=== PATIENT | female | born 1945 | race Caucasian/White ===

== ENCOUNTER → 2018-03-22 | Outpatient (CLI) | payer MEDICARE, OTHER ==
[~2018-03-22] MED LIST: AMLODIPINE BESYL5 MG PO; CALCIUM 500+D1 EACH PO; DOXAZOSIN MESYLA2 MG PO; GABAPENTIN300 MG PO; LATANOPROST2.5 ML OU; LEVOTHYROXINE50 MCG PO; LOSARTAN POTAS100 MG PO; LOTRONEX1 MG PO; MECLIZINE HCL12.5 MG PO; METFORMIN HCL500 M2 PO; METOPROLOL SUCC50 MG PO; PANTOPRAZOLE SO40 MG PO; PLAVIX75 MG PO; PRAVASTATIN SOD20 MG PO; TRAZODONE HCL50 MG PO; VIIBRYD40 MG PO; WELCHOL625 MG PO
--- NOTE | 2018-04-01 12:12 | Polysomnography ---
DATE OF STUDY: POLYSOMNOGRAM REPORT Patient of Dr. Tompkins and Dr. Arshad. A 72-year-old woman with a history of apneas noted by family. Difficulty falling asleep. Diagnostic study was requested. She was monitored using standard EEG lead. In addition, she was monitored with electrooculogram, submentalis EMG, anterior tibialis EMG, nasal and oral thermistors, rib cage, and abdominal strain moncho monitor, and pulse oximeter. Sleep efficiency was reduced at 74%. Sleep onset latency was somewhat prolonged at 46 minutes. All stages of sleep were recorded. There were 4 obstructive apneas, the average duration 11 seconds. There were 42 hypopneas. The apnea hypopnea index was 8.5 consistent with mild obstructive sleep apnea. There were in addition respiratory event related arousals particularly during REM sleep. The respiratory disturbance index was 12.8. Occasional paroxysmal leg movements of sleep. There was moderate O2 desaturation to 86%. The findings are consistent with mild obstructive sleep apnea. Certainly, weight reduction should be part of the patient's therapeutic program. Examination of nasal and oropharynx should be considered, as well as assay of thyroid function if not performed recently. Other therapeutic options gino include uvulopalatopharyngoplasty, jaw retaining devices and nasal CPAP. IMPRESSION: Mild obstructive sleep apnea. Job#: [id number] VINCE
== END ==
LOC: SLEEP 15:19
PROVIDERS: ATTEND Internal Medicine
DX: G47.30 Sleep apnea, unspecified (principal); R06.83 Snoring
CPT/HCPCS: 95810

== ENCOUNTER 2019-03-02 07:46 | Inpatient (IN) | payer MEDICARE, OTHER ==
[~2019-03-02] VITALS: Ht 172.7 cm; Wt 99.3 kg
--- OUTSIDE RECORDS SUMMARY | 2019-03-02 07:50 | XMS REPORT | Summary of Care ---
Author Organization Unknown Address Unknown Phone Unavailable Encounter HQ En[facility]_aleks([facility]) [id number] Date(s): 08/07/14 - 08/07/14 [facility] Outpatient Imaging - [address] [address] [place] Discharge Disposition: Home Physician Attending: Alma Tompkins MD Reason for Visit V10.11 - HX-BRONCHOGENIC Problem List No data available for this section Allergies, Adverse Reactions, Alerts Substance Reaction Severity Status Ceclor Active codeine Active penicillin Active Medications No data available for this section Medications Administered During Your Visit No data available for this section Immunizations No data available for this section
--- OUTSIDE RECORDS SUMMARY | 2019-03-02 07:50 | XMS REPORT | Summary of Care ---
Author Author [facility] Organization [facility] Address Unknown Phone Unavailable Encounter MARISSA Mac(SABAS) [id number] Date(s): 06/12/18 - 06/12/18 [facility] [address] [place] [address]- Encounter Diagnosis Iron deficiency anemia, unspecified (Final) - 06/22/18 Unspecified cirrhosis of liver (Final) - Unspecified chronic gastritis without bleeding (Final) - Benign neoplasm of ascending colon (Final) - Benign neoplasm of transverse colon (Final) - Benign neoplasm of descending colon (Final) - Benign neoplasm of sigmoid colon (Final) - Diaphragmatic hernia without obstruction or gangrene (Final) - Other fecal abnormalities (Final) - Gastro-esophageal reflux disease without esophagitis (Final) - Essential (primary) hypertension (Final) - Personal history of malignant neoplasm of breast (Final) - Discharge Disposition: Home or Self Care Attending Physician: Duane Castellano MD Referring Physician: Duane Castellano MD Vital Signs 1 2 3 Most recent to oldest [Reference Range]: 172.72 cm (06/11/18 10:56 AM) Height 151/60 mmHg *HI* (06/12/18 9:35 AM) 148/62 mmHg *HI* (06/12/18 9:20 AM) 142/58 mmHg *HI* (06/12/18 9:05 AM) Blood Pressure [90-140/60-90 mmHg] 18 BRMIN (06/12/18 9:35 AM) 20 BRMIN (06/12/18 9:20 AM) 20 BRMIN (06/12/18 9:05 AM) Respiratory Rate [14-20 BRMIN] 111.364 kg (06/11/18 10:56 AM) Weight 37.33 m2 (06/11/18 10:56 AM) Body Mass Index Problem List Condition Effective Dates Status Health Status Informant Back pain(Confirmed) Resolved Adenocarcinoma of Resolved breast(Confirmed) Coronary artery Resolved disease(Confirmed) Diabetes(Confirmed) Resolved GERD Resolved (gastroesophageal reflux disease)(Confirmed) Glaucoma(Confirmed) Resolved Hiatal Resolved hernia(Confirmed) Hypertension(Confirm Resolved ed) Hypothyroidism(Confi Resolved rmed) Iron deficiency Resolved anemia(Confirmed) Irritable bowel Resolved syndrome(Confirmed) Breast Resolved cancer(Confirmed) Cancer of Resolved lung(Confirmed) Cancer of Resolved lung(Confirmed) Lung Resolved cancer(Confirmed) Osteoporosis(Confirm Resolved ed) Colon Resolved polyp(Confirmed) Sepsis(Confirmed) Resolved Urinary tract Resolved infection(Confirmed) Allergies, Adverse Reactions, Alerts Substance Reaction Severity Status codeine Active penicillin Active Ceclor Active Medications amLODIPine PO, Daily, 0 Refill(s) Start Date: 06/11/18 Status: Ordered aspirin 81 mg, PO, Daily, 0 Refill(s) Start Date: 06/12/18 Status: Ordered Breo Ellipta 100 mcg-25 mcg inhalation powder 1 puff, INHALATION, Daily, 0 Refill(s) Start Date: 06/12/18 Status: Ordered clopidogrel 75 mg oral tablet 75 mg=1 tab, PO, Daily, # 30 tab, 0 Refill(s) Start Date: 06/11/18 Status: Ordered doxazosin 2 mg oral tablet 2 mg=1 tab, PO, Daily, # 30 tab, 0 Refill(s) Start Date: 06/11/18 Status: Ordered DuoNeb inhalation solution 3 ml, Route: NEB, Drug Form: SOLN, Dosing Weight 111.364, kg, PRN, PRN Respirato ry Pathway, Start date: 06/12/18 7:20:00 CDT, Duration: 30 day, Stop date: 07/12 7:19:00 CDT Notes: (Same as: Duoneb) Start Date: 06/12/18 Stop Date: 06/12/18 Status: Discontinued gabapentin 300 mg oral capsule 300 mg=1 cap, PO, Daily, 0 Refill(s) Start Date: 06/11/18 Status: Ordered meclizine 12.5 mg oral tablet 12.5 mg=1 tab, PO, Daily, 0 Refill(s) Start Date: 06/12/18 Status: Ordered metFORMIN PO, 0 Refill(s) Start Date: 06/11/18 Status: Ordered Nitrostat 0.4 mg sublingual tablet 0.4 mg=1 tab, SL, Q5Min, PRN Chest Pain, # 100 tab, 0 Refill(s) Start Date: 06/11/18 Status: Ordered pravastatin 40 mg oral tablet 40 mg=1 tab, PO, Bedtime, # 30 tab, 0 Refill(s) Start Date: 06/11/18 Status: Ordered ProAir HFA 90 mcg/inh inhalation aerosol with adapter 2 puff, INHALER, Q4H, PRN wheezing, coughing, or shortness of breath, # 1 ea, 1 Refill(s) Start Date: 06/11/18 Status: Ordered Protonix 40 mg oral enteric coated tablet 40 mg=1 tab, PO, Daily, # 30 tab, 0 Refill(s) Start Date: 06/11/18 Status: Ordered Sodium Chloride 0.9% IV 1000 mL 1,000 mL, Rate: 25 ml/hr, Infuse over: 40 hr, Route: IV, Dosing Weight 111.364 k g, Total Volume: 1,000, Start date: 06/12/18 7:22:00 CDT, Duration: 30 day, Stop date: 07/12/18 7:21:00 CDT, 2.34, m2 Start Date: 06/12/18 Stop Date: 06/12/18 Status: Discontinued trazodone 150 mg oral tablet 150 mg=1 tab, PO, Bedtime, # 30 tab, 0 Refill(s) Start Date: 06/11/18 Status: Ordered triamcinolone topical 0.5% cream TOP, BID, 0 Refill(s) Start Date: 06/11/18 Status: Ordered Viibryd 40 mg oral tablet 40 mg=1 tab, PO, Daily, 0 Refill(s) Start Date: 06/11/18 Status: Ordered Welchol 625 mg oral tablet 1,875 mg=3 tab, PO, BID-Meals, # 180 tab, 0 Refill(s) Start Date: 06/11/18 Status: Ordered Results No data available for this section Immunizations No data available for this section Procedures Procedure Date Related Diagnosis Body Site Status section Completed Cholecystectomy Completed Hysterectomy Completed Lumpectomy of breast1 Completed 1left breast Social History Social History Type Response Smoking Status Never smoker; Exposure to Tobacco Smoke None; Cigarette Smoking Last 365 Days No; Reg Smoking Cessation Counseling No entered on: 11/28/18 Assessment and Plan No data available for this section
--- OUTSIDE RECORDS SUMMARY | 2019-03-02 07:50 | XMS REPORT | Summary of Care ---
Author Author [facility] Address [address] [place] [address] Phone Unavailable Care Team Providers Care Car Repairer Pullman Name Role Phone RICH Alvarenga, JENN Unavailable Unavailable BERENICE Bass, JEREMIAH Unavailable Unavailable ELZA Bass, ANJU Unavailable Unavailable MONIE Bass, ARELIS Unavailable Unavailable MONTANEZ N.P., GRAY Unavailable Unavailable DOLLY Bass, PABLO Unavailable Unavailable MIKE Bass, IZAIAH Unavailable Unavailable BERENICE HUMPHRIES RI, JEREMIAH ANDREWS Unavailable Unavailable RICH BAKER RI, JENN Unavailable Unavailable Unavailable Unavailable Functional Status Name Dates Details Functional status health issues are not documented Status: Name Dates Details Cognitive status health issues are not documented Status: Problems Name Dates Details Abdominal pain (789.00, R10.9) Status: Active Excessive sweating (780.8, R61) Status: Active Vaginitis (616.10, N76.0) Status: Active Postmenopausal atrophic vaginitis (627.3, N95.2) Status: Active Esophageal reflux (530.81, K21.9) Status: Active Acute upper respiratory infection (465.9, J06.9) Status: Active Insomnia (780.52, G47.00) Status: Active Nasal fracture (802.0, S02.2XXA) Status: Active Facial contusion (920, S00.83XA) Status: Active Concussion (850.9, S06.0X9A) Status: Active Lip laceration (873.43, S01.511A) Status: Active Fall from slip, trip, or stumble (E885.9, W01.0XXA) Status: Active Cervical sprain (847.0, S13.9XXA) Status: Active Extremity pain (729.5, M79.609) Status: Active Generalized osteoarthritis of multiple sites (715.09, M15.9) Status: Active Varicosities of leg (454.9, I83.90) Status: Active DJD (degenerative joint disease) (715.90, M19.90) Status: Active Mid back pain on left side (724.5, M54.9) Status: Active Sinusitis (473.9, J32.9) Status: Active Bronchitis (490, J40) Status: Active Need for pneumococcal vaccine (V03.82, Z23) Status: Active Osteopenia (733.90, M85.80) Status: Active Vaginal atrophy (627.3, N95.2) Status: Active Hair thinning (704.00, L65.9) Status: Active Elevated serum free T4 level (794.5, R94.6) Status: Active Recurrent UTI (599.0, N39.0) Status: Active Allergic rhinitis (477.9, J30.9) Status: Active Frequent UTI (599.0, N39.0) Status: Active History of Sepsis due to urinary tract infection (038.9, A41.9) Status: Resolved Need for vaccination with 13-polyvalent pneumococcal conjugate vaccine (V03.82, Z23) Status: Active Overactive bladder (596.51, N32.81) Status: Active Advance directive discussed with patient (V65.49, Z71.89) Status: Active Urinary incontinence (788.30, R32) Status: Active Obesity (BMI 35.0-39.9 without comorbidity) (278.00, E66.9) Status: Active Gastroesophageal reflux disease (530.81, K21.9) Status: Active Urge incontinence (788.31, N39.41) Status: Active Risk for falls (V15.88, Z91.81) Status: Active Uncontrolled hypertension (401.9, I10) Status: Active BMI 35.0-35.9,adult (V85.35, Z68.35) Status: Active New onset of headaches after age 50 (784.0, R51) Status: Active Chest pain (786.50, R07.9) Status: Active Hordeolum externum of left upper eyelid (373.11, H00.014) Status: Active Hordeolum externum of right lower eyelid (373.11, H00.012) Status: Active Nasal vestibulitis (478.19, J34.89) Status: Active BMI 36.0-36.9,adult (V85.36, Z68.36) Status: Active Urge incontinence of urine (788.31, N39.41) Status: Active Encounter for removal of sutures (V58.32, Z48.02) Status: Active Skin hemangioma (228.01, D18.01) Status: Active Encounter for biopsy (V72.83, Z01.818) Status: Active Skin lesion of back (709.9, L98.9) Status: Active Abnormal electrocardiogram (794.31, R94.31) Status: Active Breast cancer screening (V76.10, Z12.31) Status: Active Foot pain (729.5, M79.673) Status: Active Well woman exam with routine gynecological exam (V72.31, Z01.419) Status: Active Nausea (787.02, R11.0) Status: Active Chronic anxiety (300.00, F41.9) Status: Active Depressive disorder (311, F32.9) Status: Active Hospitalization within last 30 days (V15.89, Z92.89) Status: Active History of TIA (transient ischemic attack) (V12.54, Z86.73) Status: Active Hypertension, well controlled (401.9, I10) Status: Active On statin therapy (V58.69, Z79.899) Status: Active Influenza vaccine needed (V04.81, Z23) Status: Active Contact dermatitis (692.9, L25.9) Status: Active Heart murmur (785.2, R01.1) Status: Active Hypothyroidism (244.9, E03.9) Status: Active Xerosis cutis (706.8, L85.3) Status: Active TIA (transient ischemic attack) (435.9, G45.9) Status: Active Otitis externa, acute (380.10, H60.509) Status: Active Otitis, serous (381.4, H65.90) Status: Active Arthritis (716.90, M19.90) Status: Active Cerumen impaction (380.4, H61.20) Status: Active Bilateral impacted cerumen (380.4, H61.23) Status: Active Hearing loss, bilateral (389.9, H91.93) Status: Active Nocturnal leg cramps (327.52, G47.62) Status: Active Dyshidrotic hand dermatitis (705.81, L30.1) Status: Active 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, 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 Irritable bowel syndrome with diarrhea (564.1, K58.0) Status: Active Essential (primary) hypertension (401.9, I10) Status: Active Eczema (692.9, L30.9) Status: Active Dysuria (788.1, R30.0) Status: Active Acute sinusitis (461.9, J01.90) Status: Active Atypical nevus (216.9, D22.9) Status: Active Abdominal pain, right lateral (789.09, R10.9) Status: Active Diabetes mellitus, type II (250.00, E11.9) Status: Active Atypical chest pain (786.59, R07.89) Status: Active At risk for coronary artery disease (V49.89, Z91.89) Status: Active Atherosclerosis of both carotid arteries (433.10, I65.23) Status: Active Acute bronchitis, bacterial (466.0, J20.8) Status: Active CAD (coronary artery disease) (414.00, I25.10) Status: Active Interstitial lung disease (515, J84.9) Status: Active Other eczema (692.9, L30.8) Status: Active Neoplasm of uncertain behavior of skin (238.2, D48.5) Status: Active Acrochordon (701.9, L91.8) Status: Active Tattoo of skin (709.09, L81.8) Status: Active Hernandez angioma (228.01, D18.01) Status: Active Seborrheic keratosis (702.19, L82.1) Status: Active Solar lentigo (709.09, L81.4) Status: Active 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, 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 Urinary tract infection (599.0, N39.0) Status: Active Malodorous urine (791.9, R82.90) Status: Active Vertigo (780.4, R42) Status: Active Allergic rhinitis, seasonal (477.9, J30.2) Status: Active Sore throat (462, J02.9) Status: Active Diabetic eye exam (V72.0, Z01.00) Status: Active At moderate risk for fall (V15.88, Z91.81) Status: Active Depression screening (V79.0, Z13.89) Status: Active Encounter for mini-mental status examination Status: Active History of lung cancer (V10.11, Z85.118) Status: Active History of left breast cancer (V10.3, Z85.3) Status: Active Sliding hiatal hernia (553.3, K44.9) Status: Active Breast calcifications (793.89, R92.1) Status: Active Financial difficulties (V60.2, Z59.8) Status: Active Medications Name Dates Details AmLODIPine Besylate 10 MG Oral Tablet TAKE 1 TABLET DAILY Quantity: 90 JEREMIAH NG M.D. * Start : 14-Oct-2013 Active MetFORMIN HCl ER 500 MG Oral Tablet Extended Release 24 Hour TAKE 2 TABLET TWICE DAILY * Refills: 0 Active TraZODone HCl - 100 MG Oral Tablet TAKE 1 and 1/2 TABLETS AT BEDTIME FOR SLEEP * Quantity: 135 Refills: 0 JEREMIAH NG M.D. * Start : 04-Aug-2014 Active Welchol 625 MG Oral Tablet Take 1 tablet PO BID * Refills: 0 * Start : 04-Aug-2014 Active Pantoprazole Sodium 40 MG Oral Tablet Delayed Release TAKE 1 TABLET DAILY * Quantity: 30 Refills: 0 JEREMIAH NG M.D. * Start : 25-Aug-2014 Active Nitrostat 0.4 MG Sublingual Tablet Sublingual DISSOLVE 1 TABLET UNDER THE TONGUE NEEDED FOR CHEST PAIN. * Quantity: 25 Refills: 0 ANJU BERTRAND M.D. * Start : 09-Feb-2016 Active Viibryd 40 MG Oral Tablet TAKE 1 TABLET DAILY * Quantity: 30 Refills: 0 JEREMIAH NG M.D. * Start : 15-Apr-2016 Active Meclizine HCl - 12.5 MG Oral Tablet TAKE TABLET AT BEDTIME NEEDED * Quantity: 90 Refills: 0 JEREMIAH NG M.D. Active Pravastatin Sodium 40 MG Oral Tablet TAKE 1 TABLET AT BEDTIME * Quantity: 90 Refills: 0 JEREMIAH NG M.D. * Start : 08-Jan-2018 Active Clopidogrel Bisulfate 75 MG Oral Tablet TAKE 1 TABLET DAILY * Quantity: 90 Refills: 0 JEREMIAH NG M.D. * Start : 29-Jan-2018 Active Lotronex 1 MG Oral Tablet TAKE 1 TABLET TWICE DAILY. * Refills: 0 Active Aspirin 81 MG TABS TAKE 1 TABLET DAILY. * Refills: 0 Active Fluticasone Propionate 50 MCG/ACT Nasal Suspension USE 1 SPRAY IN EACH NOSTRIL TWICE DAILY. * Quantity: 1 Refills: 6 PABLO ALBERTO M.D. * Start : 18-Oct-2017 Active 9.9 ML Bottle Betamethasone Valerate 0.1 % External Ointment APPLY SPARINGLY TO AFFECTED AREA(S) 3 TIMES A DAY * Quantity: 1 Refills: 2 RICH P.A., JENN * Start : 21-Nov-2017 Active 45 GM Tube Levocetirizine Dihydrochloride 5 MG Oral Tablet 1 tab po qd * Quantity: 30 Refills: 2 RICH P.A., JENN * Start : 21-Nov-2017 Active ProAir HFA 108 (90 Base) MCG/ACT Inhalation Aerosol Solution INHALE 1 TO 2 PUFFS EVERY 4 TO 6 HOURS NEEDED. * Quantity: 1 Refills: 1 ARELIS LOMAX M.D. * Start : 27-Dec-2017 Active 8.5 GM Inhaler Doxycycline Monohydrate 100 MG Oral Tablet TAKE 1 TABLET EVERY 12 HOURS DAILY. * Quantity: 20 Refills: 0 MONIE Bass ARELIS * Start : 27-Dec-2017 Active Triamcinolone Acetonide 0.1 % External Ointment Apply small amount to red, raised, itchy areas twice daily. Avoid face, folds of groin, armpits. HEB $4. Both 0.1%&0.5%. * Quantity: 1 Refills: 7 IZAIAH CHANDLER M.D. * Start : 26-Jan-2018 Active 80 GM Tube Triamcinolone Acetonide 0.5 % External Ointment Apply small amount twice daily to red, raised, itchy areas; avoid face, folds of groin, folds of armpits. HEB $10 Formulary. Both 0.1%&0.5%. * Quantity: 45 Refills: 4 VIRGINIA CHANDLER M.D.HA * Start : 26-Jan-2018 Active Losartan Potassium 100 MG Oral Tablet TAKE 1 TABLET DAILY. * Quantity: 30 Refills: 0 MONTANEZ N.P., GRAY Active Doxazosin Mesylate 2 MG Oral Tablet take one and one-half tablets at bedtime * Quantity: 135 Refills: 0 RICH P.A. JENN * Start : 05-Jan-2016 Active Levothyroxine Sodium 50 MCG Oral Tablet TAKE 1 TABLET DAILY. * Refills: 0 Active Metoprolol Succinate ER 50 MG Oral Tablet Extended Release 24 Hour TAKE 1 TABLET DAILY * Quantity: 90 Refills: 1 JEREMIAH NG M.D. * Start : 04-Mar-2013 Active Multiple Vitamin TABS TAKE 1 TABLET DAILY. * Refills: 0 * Start : 11-Jun-2012 Active Calcium + D 600-200 MG-UNIT TABS TAKE 1 TABLET DAILY. * Refills: 0 * Start : 11-Jun-2012 Active Gabapentin 300 MG Oral Capsule TAKE 1 CAPSULE once a day * Quantity: 270 Refills: 2 CYNTHIA NG M.D.NDA * Start : 04-Nov-2013 Active Allergies and Adverse Reactions Name Dates Details Willlor SUSR (Allergy) Status: Active Codeine Derivatives (Allergy) Status: Active Penicillins (Allergy) Status: Active Past Medical History Name Dates Details History of Back pain (724.5, M54.9) Status: Resolved History of Breast Cancer (V10.3) Status: Resolved History of essential hypertension (V12.59, Z86.79) Status: Resolved History of essential hypertension (V12.59, Z86.79) Status: Resolved History of glaucoma (V12.49, Z86.69) Status: Resolved History of hiatal hernia (V12.79, Z87.19) Status: Resolved History of lung cancer (V10.11, Z85.118) Status: Resolved History of Lung Cancer (V10.11) Status: Resolved History of Multiparity (V61.5, Z64.1) Status: Resolved History of Osteoporosis (733.00, M81.0) Status: Resolved History of Polyp of sigmoid colon (211.3, D12.5) Status: Resolved History of Sepsis due to urinary tract infection (038.9, A41.9) Status: Resolved History of urinary tract infection (V13.02, Z87.440) Status: Resolved Procedures Procedure Dates Details History of Cholecystectomy Completed History of Oophorectomy - Bilat (Removal Of Both Ovaries) Laparoscopic Completed History of Section Completed History of Tubal Ligation Completed History of Enteroscopic Polypectomy Completed Immunization Name Dates Details Pneumo on: Aug-2005 Td on: Mar-2006 Fluzone INJ on: 11-Sep-2013 Influenza Lot #: [id number] on: 04-Aug-2014 Pneumococcal polysaccharide vaccine, 23 valent Lot #: [id number] on: 22-Sep-2014 Influenza on: 17-Aug-2015 Prevnar 13 Intramuscular Suspension Lot #: [id number] on: 19-Oct-2015 Fluzone Quadrivalent 0.5 ML Intramuscular Suspension Lot #: [id number] on: 23-Aug-2016 Fluzone Quadrivalent 0.5 ML Intramuscular Suspension Lot #: [id number] on: 18-Jul-2017 Family History Name Dates Details Family history of Diabetes Mellitus (V18.0) Status: Active Family history of Heart Disease (V17.49) Status: Active Family history of Cancer Status: Active Name Dates Details Family history of Diabetes Mellitus (V18.0) Status: Active Name Dates Details Family history of Diabetes Mellitus (V18.0) Status: Active Social History Name Dates Details - Status: Name Dates Details Never smoker Vital Signs Date Test Result Details [id number] BP Systolic 133 mm[Hg] Status: Comments: Location: LUE; Position: Sitting BP Diastolic 71 mm[Hg] Status: Comments: Location: LUE; Position: Sitting Height 68 in Status: Weight 235.375 lb Status: Body Mass Index Calculated 35.79 kg/m2 Status: Body Surface Area Calculated 2.19 m2 Status: Heart Rate 80 /min Status: Respiration Rate 16 /min Status: Results Date Description Value Details [id number] [facility] Report Comments: [facility] Sharmaine Padilla For: Dermatopathology Laboratory Izaiah Chandler MD [address] , [address] [facility] [place] [id number] [facility] [address] CLIA #[id number] [phone] [place] [address] [email or web address] REPORT Diagnosis:A. Irritated acrochordon, skin, R. flank superiorB. Acrochordon, skin, R. flank inferiorC. Acrochordon, skin, R. flank anteriorD. Acrochordon, skin, R. upper abdomen Chi Resendiz Electronically Signed ([id number]) Clinical Data:Catches on bra and bleeds. Clinical Diagnosis A. - D. Acrochordons b0 Gross Description:Received in formalin labeled with the patient's name are:A. A 4 x 3 x 3 mm shave.B. A 2 x 2 x 2 mm shave.C. A 3 x 2 x 2 mm shave.D. A 3 x 2 x 2 mm shave.All specimens are in toto. Microscopic Description:A-D. Performed. Teaching Physician StatementI have personally reviewed the resident's preliminary and all specimen preparation andhave personally issued this report. REPORT Plan of Care Name Dates Details Planned Observations Planned Goals not documented Planned Encounters Appointment; JEREMIAH NG M.D. On: 20-Feb-2018 14:45 Appointment; ANJU BERTRAND M.D. On: 31-Aug-2018 11:00 Appointment; IZAIAH CHANDLER M.D. On: 25-Jan-2019 11:15 Instructions Name Dates Details Instructions not documented Encounters Appointment; JEREMIAH NG M.D. Encounter Diagnosis: Problem not documented On: 15-Apr-2016 13:30 Appointment; ANJU BERTRAND M.D. Encounter Diagnosis: Problem not documented On: 11-May-2016 15:40 Appointment; JEREMIAH NG M.D. Encounter Diagnosis: Problem not documented On: 23-Aug-2016 10:00 Appointment; JEREMIAH NG M.D. Encounter Diagnosis: Problem not documented On: 31-Aug-2016 9:45 Appointment; ARELIS LOMAX M.D. Encounter Diagnosis: Problem not documented On: 09-Sep-2016 13:00 Appointment; CONCETTA DUQUE M.D. Encounter Diagnosis: Problem not documented On: 12-Nov-2016 11:30 Appointment; JEREMIAH NG M.D. Encounter Diagnosis: Problem not documented On: 26-Jan-2017 14:45 Appointment; GRAY MONTANEZ NP Encounter Diagnosis: Problem not documented On: 12-May-2017 13:30 Appointment; JEREMIAH NG M.D. Encounter Diagnosis: Problem not documented On: 18-Jul-2017 11:30 Appointment; ANJU BERTRAND M.D. Encounter Diagnosis: Problem not documented On: 28-Jul-2017 11:20 Appointment; JENN VILLANUEVA P.A. Encounter Diagnosis: Problem not documented On: 29-Jul-2017 11:30 Appointment; JEREMIAH NG M.D. Encounter Diagnosis: Problem not documented On: 21-Aug-2017 15:15 Appointment; PABLO ALBERTO M.D. Encounter Diagnosis: Problem not documented On: 18-Oct-2017 14:15 Appointment; JENN VILLANUEVA, P.AOctavio Encounter Diagnosis: Problem not documented On: 21-Nov-2017 16:00 Appointment; JENN VILLANUEVA, POctavioAOctavio Encounter Diagnosis: Problem not documented On: 07-Dec-2017 8:15 Appointment; JENN VILLANUEVA POctavioAOctavio Encounter Diagnosis: Problem not documented On: 20-Dec-2017 16:00 Appointment; [place]-MS, NUCLEAR Encounter Diagnosis: Problem not documented On: 26-Dec-2017 8:15 Appointment; ANJU BERTRAND M.D. Encounter Diagnosis: Problem not documented On: 26-Dec-2017 13:20 Appointment; ARELIS LOMAX M.D. Encounter Diagnosis: Problem not documented On: 27-Dec-2017 11:30 Appointment; IZAIAH CHANDLER M.D. Encounter Diagnosis: Problem not documented On: 26-Jan-2018 13:00
--- OUTSIDE RECORDS SUMMARY | 2019-03-02 07:50 | XMS REPORT | Summary of Care ---
Author Author [facility] Organization [facility] Address Unknown Phone Unavailable Encounter HQ Bubba(SABAS) [id number] Date(s): 02/06/17 - 02/06/17 [facility] [address] [place] [address]- Discharge Disposition: Home or Self Care Attending Physician: Alma Tompkins MD Referring Physician: Alma Tompkins MD Vital Signs Most recent to 1 oldest [Reference Range]: Height 172.72 cm (02/06/17 1:12 PM) Weight 104.545 kg (02/06/17 1:12 PM) Body Mass Index 35.04 m2 (02/06/17 1:12 PM) Problem List No data available for this section Allergies, Adverse Reactions, Alerts Substance Reaction Severity Status Ceclor Active codeine Active penicillin Active Medications No data available for this section Results No data available for this section Immunizations No data available for this section Procedures No data available for this section Social History No data available for this section Assessment and Plan No data available for this section
--- OUTSIDE RECORDS SUMMARY | 2019-03-02 07:50 | XMS REPORT | Summary of Care ---
Author Author [facility] Address Unknown Phone Unavailable Encounter HQ Bubba(FIN) [id number] Date(s): 11/05/18 - 12/04/18 [facility] Discharge Disposition: Home or Self Care Attending Physician: Alma Tompkins MD Vital Signs No data available for this section Problem List Condition Effective Dates Status Health [...] codeine Active penicillin Active Ceclor Active Medications No data available for this [...]
--- OUTSIDE RECORDS SUMMARY | 2019-03-02 07:50 | XMS REPORT | Summary of Care ---
Author Author [facility] Outpatient Imaging [facility] Outpatient Imaging [facility] Address Unknown Phone Unavailable Encounter HQ Encntr_aleks(FIN) [id number] Date(s): 12/13/17 - 12/13/17 [facility] Outpatient Imaging [facility] [address] [facility], [address] [place], [place] [address] [phone] Encounter Diagnosis Unspecified abdominal pain (Final) - 12/15/17 Discharge Disposition: Home or Self Care Attending Physician: Checo Ford MD Vital Signs No data available for this section Problem List No data available for this [...]
--- OUTSIDE RECORDS SUMMARY | 2019-03-02 07:50 | XMS REPORT | Summary of Care ---
Author Author [facility] Outpatient Imaging [facility] Outpatient Imaging [facility] Address Unknown Phone Unavailable Encounter HQ Bubba(FIN) [id number] Date(s): 12/29/17 - 12/29/17 [facility] Outpatient Imaging [facility] [address], [address] [place], [place] [address] [phone] Encounter Diagnosis Interstitial pulmonary disease, unspecified (Final) - 01/03/18 Personal history of other malignant neoplasm of bronchus and lung (Final) - Pleural effusion, not elsewhere classified (Final) - Pericardial effusion (noninflammatory) (Final) - Atherosclerotic heart disease of [place] coronary artery without angina pectoris (Final) - Atherosclerosis of aorta (Final) - Discharge Disposition: Home or Self [...]
--- OUTSIDE RECORDS SUMMARY | 2019-03-02 07:50 | XMS REPORT ---
Author Author [facility] Address Unknown Phone Unavailable Care Team Providers Care [employer] Finisher Name Role Phone WALTER CERVANTES Unavailable Unavailable Problems This patient has no known problems. Allergies, Adverse Reactions, Alerts This patient has no known allergies or adverse reactions. Medications This patient has no known medications. Results Test Description Test Time Test Comments Text Results Atomic Results Result Comments MRI BRAIN WO [place] [address] Patient Name: LONI OCASIO MR #: [id number] : 1945 Age/Sex: 72/F Req #: [id number] Adm Physician: WALTER CERVANTES MD Ordered by: ZENY MCCURDY MD Report #: [id number] Location: MED/SURG Room/Bed: [facility] Procedure: [id number] MRI/MRI BRAIN WO Exam Date: 07/03/17 Exam Time: 1203 REPORT STATUS: Signed Exam: Brain MRI without IV contrast History: TIA, right-sided weakness and numbness Comparison studies: None Technique: Sagittal T2; axial DWI, FLAIR, MPGR, T1, Coronal FLAIR. Intravenous contrast: None Findings: Scalp: Normal in signal . No masses . Bone marrow: Normal in signal intensity. Brain sulci: Appropriate for age. Ventricles: Normal in size . No hydrocephalus . Parenchyma: No mass, hemorrhage or acute ischemia. A few scattered and mildly confluent-periventricular T2 FLAIR hyperintense signal changes in the supratentorial white matter are nonspecific but most compatible with chronic small vessel ischemic changes. Suprasellar region: No abnormalities. Craniocervical junction: Patent foramen magnum. No Chiari malformation. Vessels: Normal flow-voids in the arteries and sinuses. Incidental findings: Nonspecific T2 hyperintense inflammatory changes at the mastoid tip. Small nonspecific secretions in the right sphenoid sinus. Bilateral lens replacement related to previous scattered surgery. IMPRESSION: 1. No acute abnormalities. 2. Mild chronic microvascular ischemic changes are 3. No changes in the previous head CT of 07/02/2017. Signed by: Dr. Ann Smith M.D. on 07/03/2017 2:00 PM Dictated By: ANN SMITH MD 99 Transcribed By: ELIZABET on 07/03/17 1400 COPY TO: ZENY MCCURDY MD CT BRAIN WO [place] [address] Patient Name: LONI OCASIO MR #: [id number] : 1945 Age/Sex: 72/F Req #: [id number] Adm Physician: Ordered by: ZENY MCCURDY MD Report #: [id number] Location: ER Room/Bed: Procedure: [id number] CT/CT BRAIN WO Exam Date: 07/02/17 Exam Time: 2040 REPORT STATUS: Signed History:Numbness on the right side Comparison studies:None Technique: Axial images were obtained from the skull base to the vertex. Coronal and sagittal images reconstructed from the axial data. Intravenous contrast: None Findings: Scalp/skull: No abnormalities. Extra-axial spaces: No masses. No fluid collections. Brain sulci: Appropriate for age Ventricles: Normal in size and configuration. No hydrocephalus. Parenchyma: Subtle ill-defined hypodensities in the supratentorial white matter are small vessel ischemic changes. No masses, hemorrhage, acute or chronic cortical vascular insults. Sellar/suprasellar region: No abnormalities. Craniocervical junction: Patent foramen magnum. No Chiari one malformation. Incidental findings: Atherosclerotic calcifications in the carotid siphons and vertebral arteries . Impression: No acute abnormalities. Mild supratentorial white matter small vessel ischemic changes. Signed by: Dr. Arcadio Eric M.D. on 07/02/2017 9:41 PM Dictated By: ARCADIO JUAREZ MD, MD 40 Transcribed By: ELIZABET on 07/02/172140 COPY TO: ZENY MCCURDY MD CHEST 2 VIEWS [place] [address] Patient Name: LONI OCASIO MR #: [id number] : 1945 Age/Sex: 72/F Req #: [id number] Adm Physician: Ordered by: ZENY MCCURDY MD Report #: [id number] Location: ER Room/Bed: Procedure: [id number] DX/CHEST 2 VIEWS Exam Date: 07/02/17 Exam Time: 2040 REPORT STATUS: Signed EXAMINATION: CHEST 2 VIEWS INDICATION: Cerebrovascular accident COMPARISON: None FINDINGS: TUBES and LINES: None. LUNGS: Lungs are not well inflated. There are bibasilar atelectasis. There is no evidence of pneumonia or pulmonary edema. PLEURA: No pleural effusion or pneumothorax. HEART AND MEDIASTINUM: The cardiomediastinal silhouette is unremarkable. BONES AND SOFT TISSUES: No acute osseous lesion. Soft tissues are unremarkable. UPPER ABDOMEN: No free air under the diaphragm. IMPRESSION: 1. No acute thoracic abnormality. 2. Bibasilar atelectasis. Signed by: Dr. Blair Henry M.D. on 07/02/2017 9:42 PM Dictated By: BLAIR QUINTERO MD 41 Transcribed By: ELIZABET on 07/02/172141 COPY TO: ZENY MCCURDY MD
--- OUTSIDE RECORDS SUMMARY | 2019-03-02 07:50 | XMS REPORT | Continuity of Care Document ---
Author Author [facility] Organization Interface Address Unknown Phone Unavailable Problems Problem Status Onset Date Classification Date Reported Comments Source ACUTE CHEST PAIN Active 11/27/2018 [facility] HIGH BP Active 11/27/2018 [facility] ACUTE CHEST PAIN Active 11/27/2018 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 EGD / COLON Active 05/29/2018 [facility] Interstitial pulmonary disease, unspecified 01/04/2018 04/06/2018 [facility] [place] Unspecified abdominal pain 12/16/2017 03/21/2018 [facility] I10 / R01.1 Active 02/02/2017 [facility] R07.9 - "CHEST PAIN, UNSPECIFIED" Active 01/11/2016 [facility] Personal history of other malignant neoplasm of bronchus and lung 04/06/2018 [facility] Pleural effusion, not elsewhere classified 04/06/2018 [facility] [place] Pericardial effusion 04/06/2018 [facility] [place] Atherosclerotic heart disease of [place] coronary artery without angina pectoris 04/06/2018 [facility] [place] Atherosclerosis of aorta 04/06/2018 [facility] [place] Back pain Resolved Problem 01/27/2019 FERMIN Powers,[facility] [place],[facility] Adenocarcinoma of breast Resolved Problem 01/27/2019 FERMIN Powers,[facility] [place],[facility] Coronary artery disease Resolved Problem 01/27/2019 FERMIN Powers,[facility] [place],[facility] Diabetes Resolved Problem 01/27/2019 FERMIN Powers,[facility] [place],[facility] GERD (<span ID="[id number]">Confirmed</span>) Resolved Problem 01/27/2019 [facility] [place], [facility] [place], [facility] Glaucoma Resolved Problem 01/27/2019 [facility] [place] [place] Hiatal hernia Resolved Problem 01/27/2019 [facility] [place] [place] Hypertension Resolved Problem 01/27/2019 [facility] [place] [place] Hypothyroidism Resolved Problem 01/27/2019 [facility] [place] [place] Iron deficiency anemia Resolved Problem 01/27/2019 [facility] [place] [place] Irritable bowel syndrome Resolved Problem 01/27/2019 [facility] [place] [place] Breast cancer Resolved Problem 01/27/2019 [facility] [place] [place] Cancer of lung Resolved Problem 01/27/2019 [facility] [place] [place] Lung cancer Resolved Problem 01/27/2019 [facility] [place] [place] Osteoporosis Resolved Problem 01/27/2019 [facility] [place] [place] Colon polyp Resolved Problem 01/27/2019 [facility] [place] [place] Sepsis Resolved Problem 01/27/2019 [facility] [place] [place] Urinary tract infection Resolved Problem 01/27/2019 [facility] [place] [place],[facility] Unspecified cirrhosis of liver 12/30/2018 [facility] Unspecified chronic gastritis without bleeding 12/30/2018 [facility] Benign neoplasm of ascending colon 12/30/2018 [facility] Benign neoplasm of transverse colon 12/30/2018 [facility] Benign neoplasm of descending colon 12/30/2018 [facility] Benign neoplasm of sigmoid colon 12/30/2018 [facility] Diaphragmatic hernia without obstruction or gangrene 12/30/2018 [facility] Other fecal abnormalities 12/30/2018 [facility] Gastro-esophageal reflux disease without esophagitis 12/30/2018 [facility] Essential hypertension 12/30/2018 [facility] Personal history of malignant neoplasm of breast 12/30/2018 [facility] ESSENTIAL (PRIMARY) HYPERTENSION Active [facility] CARDIAC MURMUR, UNSPECIFIED Active [facility] CHEST PAIN, UNSPECIFIED Active [facility] MUSCLE WEAKNESS (GENERALIZED) Active [facility] [place] Medications Medication Details Route Status Patient Instructions Ordering Provider Order Date Source Sodium Chloride 0.9% IV 1000 mL 1,000 mL, Rate: 25 ml/hr, Infuse over: 40 hr, Route: IV, Dosing Weight 111.364 kg, Total Volume: 1,000, Start date: 06/12/18 7:22:00 CDT, Duration: 30 day, Stop date: 07/12/18 7:21:00 CDT, 2.34, m2 Inactive 06/12/2018 [facility] Albuterol 0.833 MG/ML / Ipratropium [place] 0.167 MG/ML Inhalant Solution [DuoNeb] 3 ml, Route: NEB, Drug Form: SOLN, Dosing Weight 111.364, kg, PRN, PRN Respiratory Pathway, Start date: 06/12/18 7:20:00 CDT, Duration: 30 day, Stop date: 07/12/18 7:19:00 CDTNotes: (Same as: Duoneb) Inactive 06/12/2018 [facility] Aspirin 81 mg, PO, Daily, 0 Refill(s) Active 06/12/2018 [facility] meclizine 12.5 mg oral tablet 12.5 mg=1 tab, PO, Daily, 0 Refill(s) Active 06/12/2018 [facility] Breo Ellipta 100 mcg-25 mcg inhalation powder 1 puff, INHALATION, Daily, 0 Refill(s) Active 06/12/2018 [facility] Nitroglycerin 0.4 MG Sublingual Tablet [Nitrostat] 0.4 mg=1 tab, SL, Q5Min, PRN Chest Pain, # 100 tab, 0 Refill(s) Active 06/11/2018 [facility] 200 ACTUAT Albuterol 0.09 MG/ACTUAT Metered Dose Inhaler [ProAir HFA] 2 puff, INHALER, Q4H, PRN wheezing, coughing, or shortness of breath, # 1 ea, 1 Refill(s) Active 06/11/2018 [facility] Triamcinolone Acetonide 5 MG/ML Topical Cream TOP, BID, 0 Refill(s) Active 06/11/2018 [facility] Colesevelam hydrochloride 625 MG Oral Tablet [Welchol] 1,875 mg=3 tab, PO, BID-Meals, # 180 tab, 0 Refill(s) Active 06/11/2018 [facility] trazodone 150 mg oral tablet 150 mg=1 tab, PO, Bedtime, # 30 tab, 0 Refill(s) Active 06/11/2018 [facility] clopidogrel 75 mg oral tablet 75 mg=1 tab, PO, Daily, # 30 tab, 0 Refill(s) Active 06/11/2018 [facility] pravastatin 40 mg oral tablet 40 mg=1 tab, PO, Bedtime, # 30 tab, 0 Refill(s) Active 06/11/2018 [facility] gabapentin 300 MG Oral Capsule 300 mg=1 cap, PO, Daily, 0 Refill(s) Active 06/11/2018 [facility] pantoprazole 40 MG Enteric Coated Tablet [Protonix] 40 mg=1 tab, PO, Daily, # 30 tab, 0 Refill(s) Active 06/11/2018 [facility] doxazosin 2 mg oral tablet 2 mg=1 tab, PO, Daily, # 30 tab, 0 Refill(s) Active 06/11/2018 [facility] Amlodipine PO, Daily, 0 Refill(s) Active 06/11/2018 [facility] Metformin PO, 0 Refill(s) Active 06/11/2018 [facility] vilazodone hydrochloride 40 MG Oral Tablet [Viibryd] 40 mg=1 tab, PO, Daily, 0 Refill(s) Active 06/11/2018 [facility] Allergies, Adverse Reactions, Alerts Substance Category Reaction Severity Reaction type Status Date Reported Comments Source codeine Assertion Propensity to adverse reactions to drug Active [facility] penicillin Assertion Drug allergy Active [facility] Ceclor Assertion Propensity to adverse reactions to drug Active [facility] Immunizations Immunization Date Given Site Status Last Updated Comments Source Results Order Name Results Value Reference Range Date Interpretation Comments Source Chest 1view DX Chest 1view DX Clinical Indication: Chest pain - cp; Comparison: 01/11/2016 FINDINGS: AP chest radiographs shows normal lung volumes without airspace opacities, pleural effusions or pneumothorax. There are mild increased interstitial markings appear The heart size and pulmonary vasculature are normal. The trachea is midline. There are no clinically significant osseous abnormalities noted. IMPRESSION: 1. Mild increased interstitial markings which are unchanged.. HILL: NAZARIO 11/27/2018 - - Read by: Cecilio Livingston MD Dictated Date/time: 11/27/18 22:07 Electronically Signed by: Cecilio Livingston MD 11/27/18 22:08 FINAL REPORT 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 Lower back pain radiating into both lower extremities, right greater than left. Unsteady gait. Comparison: None TECHNIQUE: Multiplanar T1, T2, and STIR weighted noncontrast MRI of the lumbar spine was performed on the 3.0 Shea magnet. FINDINGS: ALIGNMENT AND GENERAL ASSESSMENT: 1. Five lumbar type vertebral bodies are assumed for purpose of this dictation with conus medullaris termination at L1-L2. 2. Normal lumbar lordosis without acute fracture, dislocation, or suspicious focal osseous lesion. 3. Mild to moderate lumbar spondylosis and facet arthrosis greatest in the lower lumbar spine especially L4-L5 where a narrowed, desiccated, and bulging intervertebral disc is present along with endplate degenerative change, small Schmorl's node, and small marginal osteophyte information. Minimal grade 1 anterolisthesis of L4 on L5 is also present with suspected bilateral chronic bilateral spondylolysis of the pars interarticularis. 4. Normal paraspinal soft tissues. DISC SPACES: T12-L1: No significant disc protrusion, spinal canal narrowing, or neural foraminal narrowing. L1-L2: No significant disc protrusion, spinal canal narrowing, or neural foraminal narrowing. L2-L3: No significant disc protrusion, spinal canal narrowing, or neural foraminal narrowing. L3-L4: No significant disc protrusion or spinal canal narrowing. Minimal narrowing of both neural foramen related to facet arthrosis. L4-L5: Minimal diffuse disc bulge coupled with severe facet arthrosis and mild grade 1 anterolisthesis of L4 on L5 causing mild anterior thecal sac compression without significant spinal canal narrowing. Mild to moderate left neural foraminal narrowing and mild right neural foraminal narrowing related to facet arthrosis and spondylolisthesis. L5-S1: Minimal diffuse disc bulge coupled with moderate to severe facet arthrosis causing minimal anterior thecal sac compression without significant spinal canal narrowing. Moderate bilateral neural foraminal narrowing primarily related to facet arthrosis. IMPRESSION: 1. Mild to moderate lumbar spondylosis and facet arthrosis greatest in the lower lumbar spine. 2. Minimal diffuse disc bulge at L4-L5 coupled with severe facet arthrosis and grade 1 anterolisthesis of L4 on L5 related to bilateral spondylolysis. Mild anterior thecal sac compression is seen without significant spinal canal narrowing. Mild to moderate left neural foraminal narrowing and mild right neural foraminal narrowing are present. 3. Minimal diffuse disc bulge at L5-S1 coupled with moderate to severe facet arthrosis causing minimal anterior thecal sac compression without significant spinal canal narrowing. Moderate bilateral neural foraminal narrowing is also present at this level. SL: [id number] 10/02/2018 - - Read by: Wellington Quinteros MD Dictated Date/time: 10/02/18 14:18 Electronically Signed by: Wellington Quinteros MD 10/02/18 14:30 FINAL REPORT [facility] Abdomen complete US Abdomen complete US EXAM: US ABDOMEN COMPLETE DATE: 07/10/2018 9:02 AM CDT INDICATION: - R94.5 Abnormal results of liver function studies ADDITIONAL INFORMATION: None. COMPARISON: CT scan from December 13, 2017. TECHNIQUE: Multiplanar grayscale and color Doppler ultrasound of the abdomen. FINDINGS: Liver: Span: 18.6 cm Echogenicity: Echogenicity is increased and slightly heterogeneous throughout. Surface nodularity: Minimal nodularity is present. Mass (size and location): No focal liver mass was present. Portal vein: 10.8 mm in diameter. It has hepatopedal flow. Bile ducts: Common bile duct diameter: 9.5 mm Intrahepatic ducts: Normal. Gallbladder: Status post cholecystectomy. Pancreas: Head and Body: Normal. Tail: obscured by overlying gas Spleen: Craniocaudal length: 11.6 cm. No focal mass. Right kidney: Hydronephrosis: None. Size: 12.8 x 4.7 x 5.4 cm. cm. Echogenicity: Normal. Mass/Stone/Cyst (size and location): None. Left kidney: Hydronephrosis: None. Size: 11.6 x 5.5 x 5.3 cm cm. Echogenicity: Normal. Mass/Stone/Cyst (size and location): None. Abdominal aorta and IVC: The aorta is 1.8 cm in AP dimension proximally. No aneurysm is present. Ascites: None IMPRESSION: 1. The liver has increased internal echogenicity which is somewhat heterogeneous. This can be a nonspecific finding; however, in this case with a history of neoplasm, further evaluation with MR of the liver is suggested to more completely evaluate for fatty infiltration versus some other diffuse process such as metastatic disease. 2. The common bile duct is slightly prominent, but this is likely related to changes from prior cholecystectomy and to age. 07/10/2018 - - Read by: Curtis Yan MD Dictated Date/time: 07/10/18 10:54 Electronically Signed by: Curtis Yan MD 07/10/18 11:02 FINAL REPORT [facility] Abdomen/Pelvis w IV contrast CT Abdomen/Pelvis w IV contrast CT EXAM: CT ABDOMEN AND PELVIS WITH CONTRAST DATE: 12/13/2017 8:24 AM RN [place] INDICATION: - R10.9 Unspecified abdominal pain. Right flank pain. ADDITIONAL INFORMATION: History of prior cholecystectomy, hysterectomy, and breast surgery. History of lung and breast cancer. COMPARISON: Abdominal ultrasound of 08/18/2011. TECHNIQUE: Volumetric CT acquisition of the abdomen and pelvis after intravenous contrast. Axial, coronal and sagittal reconstructions. Postcontrast phases: Venous and delayed. IV contrast: 100 cc of Omnipaque 300 Oral contrast: Oral Omnipaque 300 and water mixture. FINDINGS: Lines and tubes: None. Lower thorax: Mild dependent subsegmental atelectasis is seen in the lung bases. There is mild increase in subpleural reticular lung markings in the periphery of the right lower lobe and to lesser extent the left lower lobe.. No pleural or pericardial effusions are seen. Liver: Normal. Biliary tree: There is mild prominence of the common bile duct and central intrahepatic ducts, likely from normal variant reservoir effect status post cholecystectomy. No constricting or obstructing biliary ductal pathology is seen.. Gallbladder: Surgically absent Pancreas: Normal. Spleen: Normal. Two separate 0.8-1.0 cm splenules are seen medial to the spleen. Adrenals: Normal. Kidneys and ureters: The kidneys enhance symmetrically and normally with prompt excretion of contrast material. No hydronephrosis, masses, or calculi are seen. The ureters are of normal course and caliber with no constricting or obstructing lesions. Bladder: Normal. Reproductive organs: The patient is status post hysterectomy. The ovaries are not seen and are likely surgically absent as well. Gastrointestinal tract: A small sliding esophageal marisol hernia is present. No other abnormalities of the stomach are seen. No abnormalities of the large and small bowel are seen. The small intestine and colon are of normal course and caliber with no constricting or obstructing lesions, masses, or surrounding inflammatory changes. No rectal or perirectal abnormalities are seen. Appendix: Not visualized Peritoneum and retroperitoneum: No lymphadenopathy, ascites or free air. Lymph nodes: No abdominal or pelvic lymphadenopathy is seen. Vasculature: Atherosclerotic calcifications are seen in the aortoiliac system with no aneurysm or dissection demonstrated. The inferior vena cava and portal venous system are normal appearance. Bones: Multilevel spondylosis and disc space narrowing are seen in the inferior thoracic and lumbar spine. There is grade 1 anterior spondylolisthesis of L4 on L5 by approximately 5 mm with no associated spondylolysis demonstrated. Facet joint osteoarthritic changes are seen at L4-L5 and at L5-S1 associated hypertrophy. No osseous destructive lesions are noted.. Soft tissues/abdominal wall: Small scattered punctate calcifications are seen in both breasts. There is some asymmetric parenchymal density in the right breast posteriorly with no discrete mass. There is atrophy and partial fatty replacement of the right rectus abdominis muscle. IMPRESSION: 1. No CT explanation for the patient's right flank pain. No abnormalities of the right kidney or the right ureter are seen. 2. Small sliding esophageal hiatal hernia. 3. Status post cholecystectomy. Mild prominence of the central intrahepatic and common bile ducts is likely from normal reservoir effect status post cholecystectomy. 4. Mild prominence of the peripheral interstitial lung markings in both lung bases as described above. Underlying interstitial lung disease or early fibrotic changes are not excluded. High-resolution CT scan of the chest may performed for further evaluation. 5. Scattered punctate calcifications in both breasts. There is also asymmetric parenchymal density in the right breast posteriorly with no discrete mass. Correlation with mammography is recommended. 6. Grade 1 anterior spondylolisthesis of L4 on L5 with no associated spondylolysis. Degenerative disc disease is seen in the spine with facet joint osteoarthritis at L4-L5 and at L5-S1 as well. 7. Status post total hysterectomy. 12/13/2017 - - Read by: Mulugeta Gaitan MD Dictated Date/time: 12/13/17 09:53 Electronically Signed by: Mulugeta Gaitan MD 12/13/17 10:07 FINAL REPORT [facility] Chest 2 views DX Chest 2 views DX EXAM: XR CHEST 2 VIEWS DATE: 01/11/2016 1:02 PM RN [place] INDICATION: R07.9 Chest pain, unspecified. History of lung cancer. History of partial right lower lobectomy. COMPARISON: 08/07/2014 TECHNIQUE: PA and lateral chest radiographs FINDINGS: There is [id number] the right hemithorax with slight mediastinal shift to the right compatible the patient's partial right lower lobectomy. Surgical clips are seen in the right hilar region as well. No masses or nodules are seen. No focal lung parenchymal abnormalities are noted. There is blunting of the right posterior costophrenic sulcus on the lateral view.. Marisol and pulmonary vasculature are normal. Cardiomediastinal silhouette is normal in appearance. No acute bony abnormality is identified. Cervical spine fusion hardware remains in place. IMPRESSION: 1. No acute cardiopulmonary abnormality. 2. Status post partial right lower lobectomy. 3. Stable blunting of the right posterior costophrenic sulcus, likely from scarring. 01/11/2016 - - Read by: Mulugeta Gaitan MD Dictated Date/time: 01/11/16 14:22 Electronically Signed by: Mulugeta Gaitan MD 01/11/16 14:25 FINAL REPORT [facility] Vital Signs Vital Sign Value Date Comments Source Respitory Rate 18 06/12/2018 [facility] Systolic (mm Hg) 151 06/12/2018 [facility] Diastolic (mm Hg) 60 06/12/2018 [facility] Systolic (mm Hg) 148 06/12/2018 [facility] Diastolic (mm Hg) 62 06/12/2018 [facility] Respitory Rate 20 06/12/2018 [facility] Systolic (mm Hg) 142 06/12/2018 [facility] Diastolic (mm Hg) 58 06/12/2018 [facility] Respitory Rate 20 06/12/2018 [facility] Height 172.72 cm 06/11/2018 [facility] BMI Calculated 37.33 06/11/2018 [facility] Weight 111.364 06/11/2018 [facility] BMI Calculated 35.04 02/06/2017 [facility] Weight 104.545 02/06/2017 [facility] Height 172.72 cm 02/06/2017 [facility] Encounters Location Location Details Encounter Type Encounter Number Reason For Visit Attending Provider ADM Date DC Date Status Source [facility] [place] [facility] [id number] Alma Goodine 08/07/2014 08/08/2014 [facility] [place] [facility] [place] [facility] [id number] Alma Goodine 01/11/2016 01/12/2016 [facility] Outpatient [id number] Alma Leda 02/06/2017 02/07/2017 [facility] - [place] [facility] [id number] [place] 12/13/2017 12/14/2017 [facility] [place] [facility] [id number] [place] [place] 12/29/2017 12/30/2017 [facility] Bedded Outpatient [id number] Duane Castellano 06/12/2018 06/12/2018 [facility] Out[facility] - [place] [facility] [id number] Duane Castellano 07/10/2018 07/11/2018 [facility] [place] OP Therapy Patients [id number] Alma Leda 11/05/2018 12/05/2018 [facility] [place] Procedures Procedure Code Date Perfomer Comments Source section [id number] [facility] [id number] [place] [facility] [id number] [facility] [place] Lumpectomy of breast<sup>1</sup> [id number] left breast [facility] section [id number] [facility] [place] Cholecystectomy [id number] [facility] [place] Hysterectomy [id number] [facility] [place] Lumpectomy of breast<sup>1</sup> [id number] left breast [facility] [place] section [id number] [facility] [id number] [facility] Hysterectomy [id number] [facility] Lumpectomy of breast<sup>1</sup> [id number] left breast [facility]
--- OUTSIDE RECORDS SUMMARY | 2019-03-02 07:50 | XMS REPORT | Summary of Care ---
Author Author [facility] Outpatient Imaging [facility] Outpatient Imaging [facility] Address Unknown Phone Unavailable Encounter HQ Bubba(FIN) [id number] Date(s): 07/10/18 - 07/10/18 [facility] Outpatient Imaging [facility] [address] [facility], [address] [place] [phone] Encounter Diagnosis Abnormal results of liver function studies (Final) - 07/16/18 Discharge Disposition: Home or Self Care Attending Physician: Duane Castellano MD Referring Physician: Duane Castellano MD Vital Signs No data available for [...]
--- OUTSIDE RECORDS SUMMARY | 2019-03-02 07:50 | XMS REPORT | Summary of Care ---
Author Author [facility] Outpatient Imaging [facility] Outpatient Imaging [facility] Address Unknown Phone Unavailable Encounter HQ Encntr_alitracy(FIN) [id number] Date(s): 01/11/16 - 01/11/16 [facility] Outpatient Imaging [facility] [address], [address] [place], [place] [id number] [place] [address] [phone] Discharge Disposition: Home Attending Physician: Alma Tompkins MD Vital Signs [...]
[2019-03-02] MEDS ORDERED: KETOROLAC TROMETHAMINE 30 MG/ML VIAL IV STA (07:57)
[2019-03-02] MEDS ORDERED: SODIUM CHLORIDE 0.9% 1000ML 1,000 ML IV STA (07:57)
[2019-03-02] MEDS ORDERED: LABETALOL HCL 5 MG/ML 20ML VIAL IV STA (07:57)
[2019-03-02] MEDS ORDERED: PANTOPRAZOLE 40 MG 10ML VIAL IV STA (07:57)
[2019-03-02] MEDS ORDERED: ONDANSETRON HCL INJ 2MG/ML 2ML 2 MG/ML VIAL IV STA (07:57)
--- NOTE | 2019-03-02 08:48 | Diagnostic Imaging Report ---
EXAMINATION: CHEST SINGLE (PORTABLE) INDICATION: ^right flank pain, htn ^[id number] ^[id number] COMPARISON: None FINDINGS: AP view TUBES and LINES: None. LUNGS: Lungs are well inflated. Ill-defined airspace opacity in the right lower lobe. Left lung appears clear. PLEURA: Blunting of the right costophrenic angle. No pneumothorax. HEART AND MEDIASTINUM: The cardiomediastinal silhouette is unremarkable. BONES AND SOFT TISSUES: No acute osseous lesion. Soft tissues are unremarkable. UPPER ABDOMEN: No free air under the diaphragm. IMPRESSION: Suboptimal exam. Ill-defined right lower lobe airspace opacity may represent pneumonia. Recommend repeat upright frontal and lateral chest x-ray if feasible. Signed by: Dr. Liss Carlos M.D. on 03/02/2019 8:45 AM
[2019-03-02 09:15] LABS: BASOPHILS % 0.4 % (0.0-1.0); EOSINOPHILS % 0.2 % (0.0-6.0); HEMOGLOBIN 12.1 g/dL (12.0-16.0); LYMPHOCYTES # (AUTO) 1.2 (1.0-3.2); LYMPHOCYTES % 12.6 % (18.0-39.1); MEAN CORPUSCULAR HEMOGLOBIN 30.1 pg (28-32); MEAN CORPUSCULAR HGB CONC 33.6 g/dL (31-35); MEAN CORPUSCULAR VOLUME 89.6 fL (81-99); MONOCYTES # (AUTO) 0.9 (0.2-0.8); MONOCYTES % 8.6 % (4.4-11.3); NEUTROPHILS # (AUTO) 7.7 (2.1-6.9); NEUTROPHILS % 77.8 % (38.7-80.0); PLATELET COUNT 184 x10e3/uL (140-360); RED BLOOD COUNT 4.02 x10e6/uL (3.6-5.1); RED CELL DISTRIBUTION WIDTH 13.9 % (11.7-14.4)
[2019-03-02 09:25] LABS: INR 0.98; PROTHROMBIN TIME 13.5 seconds (11.9-14.5)
[2019-03-02 09:26] LABS: PARTIAL THROMBOPLASTIN TIME 24.2 seconds (23.8-35.5)
[2019-03-02 09:36] LABS: ALANINE AMINOTRANSFERASE 36 IU/L (0-55); ALBUMIN 3.4 g/dL (3.5-5.0); ALBUMIN/GLOBULIN RATIO 0.8 (0.8-2.0); ALKALINE PHOSPHATASE 80 IU/L (40-150); BLOOD UREA NITROGEN 9 mg/dL (7-26); BUN/CREATININE RATIO 10 (6-25); CALCIUM 9.4 mg/dL (8.4-10.2); CARBON DIOXIDE 21 mmol/L (22-29); CHLORIDE 99 mmol/L (98-107); CREATINE KINASE 68 IU/L (29-168); CREATININE, SERUM 0.86 mg/dL (0.57-1.11); EST GLOMERULAR FILTRATION RATE > 60 ML/MIN (60-); GLUCOSE 187 mg/dL (74-118); LIPASE 19 U/L (8-78); MAGNESIUM 1.4 MG/DL (1.3-2.1); SODIUM 135 mmol/L (136-145)
[2019-03-02 09:41] LABS: CLARITY,URINE CLOUDY (CLEAR); COLOR,URINE YELLOW (YELLOW); LEUKOCYTE ESTERASE ,URINE NEGATIVE (NEGATIVE); NITRITE,URINE NEGATIVE (NEGATIVE); PROTEIN,URINE DIPSTICK 1+ (NEGATIVE)
[2019-03-02 09:42] LABS: BILIRUBIN,URINE 2+ (NEGATIVE); KETONES,URINE 1+ (NEGATIVE); URINE UROBILINOGEN 1 mg/dL (0.2 - 1)
[2019-03-02 09:43] LABS: BACTERIA,URINE MODERATE /HPF; EPITHELIAL CELLS,URINE MODERATE /LPF; RBC,URINE 0-5 /HPF (0-5)
[2019-03-02 09:44] LABS: AMORPHOUS SEDIMENT,URINE FEW (FEW); MUCUS,URINE MODERATE (RARE)
[2019-03-02 09:55] LABS: THYROID STIMULATING HORMONE 1.353 uIU/mL (0.350-4.940)
--- NOTE | 2019-03-02 10:25 | Diagnostic Imaging Report ---
EXAMINATION: CHEST 2 VIEWS INDICATION: ^? RLL INFILTRATE ^[id number] ^[id number] COMPARISON: Chest radiograph 03/02/2019 FINDINGS: PA and lateral views TUBES and LINES: None. LUNGS: Lungs are well inflated. Persistent right middle lobe airspace opacity concerning for pneumonia. Left lung is clear. PLEURA: No pleural effusion or pneumothorax. HEART AND MEDIASTINUM: Persistent rightward radiation of the trachea despite upright position suggestive of goiter or tortuous aorta. Tubular fluid-filled structure to the right of the trachea appears to correspond to a dilated esophagus on lateral view. BONES AND SOFT TISSUES: Anterior fusion of the lower cervical spine. Soft tissues are unremarkable. UPPER ABDOMEN: No free air under the diaphragm. IMPRESSION: Persistent airspace opacity in the right middle lobe concerning for pneumonia or aspiration pneumonitis in the proper clinical setting. Recommend follow-up chest radiograph in 4-6 weeks. Diffuse dilatation of the esophagus. If this finding is unknown to the patient, recommend ambulatory CT chest with IV contrast for further characterization of the findings. Signed by: Dr. Liss Carlos M.D. on 03/02/2019 10:22 AM
[2019-03-02] MEDS ORDERED: NORTRIPTYLINE H10 MG PO (10:33)
[2019-03-02] MEDS ORDERED: ALBUTEROL2.5 MG/0.5 (10:33)
[2019-03-02] MEDS ORDERED: BREO (10:33)
[2019-03-02] MEDS ORDERED: PROAIR HFA INH8.5 GM (10:33)
[2019-03-02] MEDS ORDERED: MEROPENEM 1GM 100 ML IV ONE (10:41)
[2019-03-02] MEDS: MEROPENEM 1GM 100 ML IV SCH ×3 (10:41→21:33)
[2019-03-02] MEDS ORDERED: PROMETHAZINE HC25 M1 PO (10:46)
[2019-03-02] MEDS ORDERED: CIPROFLOXACIN500 MG PO (10:46)
[2019-03-02] MEDS ORDERED: AZITHROMYCIN 500MG/NS 250 ML 250 ML ONE (11:27)
[2019-03-02] MEDS: AZITHROMYCIN 500MG/NS 250 ML 250 ML IV SCH (11:29)
[2019-03-02] MEDS ORDERED: ONDANSETRON HCL INJ 2MG/ML 2ML 2 MG/ML VIAL IV NR (11:30)
[2019-03-02] MEDS ORDERED: MORPHINE SULFATE INJ 4 MG/ML INJ 1ML IV PRN (11:30)
[2019-03-02] MEDS ORDERED: ONDANSETRON HCL INJ 2MG/ML 2ML 2 MG/ML VIAL IV PRN (11:30)
[2019-03-02] MEDS ORDERED: POTASSIUM CHLORIDE 10MEQ/100ML 100 ML ONE (11:34)
--- NOTE | 2019-03-02 11:37 | NUR ---
STILL WAITING ON CT ABD/PELVIS TO BE READ BY RADIOLOGIST
--- NOTE | 2019-03-02 11:37 | Diagnostic Imaging Report ---
EXAM: CT Abdomen and Pelvis WITH contrast INDICATION: ^VOMITING, R FLANK PAIN, UTI ? PYELONEPHRITIS ^[id number] ^[id number] COMPARISON: CT abdomen and pelvis 09/21/2011 and chest radiograph 03/02/2019 TECHNIQUE: Abdomen and pelvis were scanned utilizing a multidetector helical scanner from the lung base to the pubic symphysis after administration of IV contrast. Coronal and sagittal reformations were obtained. Routine protocol was performed. Scan was performed when during portal venous phase. IV CONTRAST: 100 mL of Isovue-370 ORAL CONTRAST: None. Unable to tolerate oral contrast RADIATION DOSE: Total DLP: 915.4 mGy*cm Estimated effective dose: (DLP x 0.015 x size factor) mSv COMPLICATIONS: None FINDINGS: LINES and TUBES: None. LOWER THORAX: Small right pleural effusion with adjacent mild subsegmental atelectasis corresponds to the abnormality seen on chest radiograph. Mediastinal lipomatosis. Small hiatal hernia with mildly patulous distal esophagus HEPATOBILIARY: No focal hepatic lesions. No biliary ductal dilation. GALLBLADDER: No radio-opaque stones or sludge. No wall thickening. SPLEEN: No splenomegaly. PANCREAS: No focal masses or ductal dilatation. ADRENALS: No adrenal nodules KIDNEYS/URETERS: Kidneys enhance symmetrically. No hydronephrosis. No cystic or solid mass lesions. No stones. GI TRACT: The cecum is located in the lower pelvis at midline and contains large amount of retained feces resulting in mild distention measuring up to 6.5 cm. Mild swirling of the adjacent loops of small bowel in the right lower quadrant on coronal image 43, which are nondilated. Few scattered diverticula in the distal sigmoid colon, for example in the left lower quadrant on series 2, image 73 without diverticulitis. The remaining bowel is unremarkable. Appendix is not well visualized. PELVIC ORGANS/BLADDER: Unremarkable. LYMPH NODES: No lymphadenopathy. VESSELS: Unremarkable. PERITONEUM / RETROPERITONEUM: No free air or fluid. BONES: Multilevel degenerative changes of the lumbar spine. SOFT TISSUES: Unremarkable. IMPRESSION: 1. Distended cecum with associated large amount of retained feces in the pelvis at midline suggestive of constipation with fecal impaction. - Swirling of few loops of nondilated small bowel adjacent to the cecum may be physiologic or represent a nonobstructing pericecal hernia. - Recommend clearance of the colon and then follow-up KUB or CT abdomen and pelvis in 2 weeks. 2. Small right pleural effusion with adjacent atelectasis corresponds to the abnormality seen on chest radiograph. Signed by: Dr. Liss Carlos M.D. on 03/02/2019 11:34 AM
[2019-03-02] MEDS ORDERED: MINERAL OIL 132 ML BTL PR ONE (12:00)
[2019-03-02] MEDS ORDERED: KCL 20MEQ/.9 SOD CHL 1,000 ML IV ONE (12:00)
[2019-03-02] MEDS ORDERED: DEXTROSE 50% SYRINGE 50 ML IV PRN (12:00)
[2019-03-02] MEDS ORDERED: MINERAL OIL 132 ML BTL PR PRN (12:00)
[2019-03-02] MEDS ORDERED: SODIUM CHLORIDE 0.9% 50ML 50 ML ONE (13:08)
[2019-03-02] MEDS ORDERED: IOPAMIDOL 370 MG/ML 200 ML INFUS..BTL INJ ONE (13:09)
[2019-03-02 13:17] VITALS: BP 177/80
[2019-03-02] MEDS ORDERED: SODIUM CHLORIDE 0.9% 250ML 250 ML ONE (13:26)
[2019-03-02 13:30] VITALS: BP 177/80
--- NOTE | 2019-03-02 13:30 | NUR ---
PATIENT RECEIVED FROM ER PER STRETCHER. ALERT AND VERBALLY RESPONSIVE. SKIN WARM AND DRY TO TOUCH, RESPIRATION EVEN AND UNLABORED. DENIED PAIN AT THIS TIME. IV POTASSIUM INFUSING ORDERED. ASSISTED TO THE RESTROOM AND BACK TO BED. PATIENT ORIENTED TO SURROUNDINGS. BED IN LOWER POSITION AND LOCKED. CALL LIGHT AT REACH, INSTRUCTED TO CALL FOR ASSISTANCE NEEDED. FAMILY AT BED SIDE.
[2019-03-02] MEDS: POTASSIUM CHLORIDE 10MEQ/100ML 100 ML IV SCH ×5 (13:31→17:02)
[2019-03-02] MEDS ORDERED: PROMETHAZINE HCL 25 MG TAB PO PRN (14:00)
[2019-03-02] MEDS ORDERED: POTASSIUM CHLORIDE 20 MEQ TAB CR PO NR (14:15)
[2019-03-02] MEDS: DOCUSATE SODIUM 100 MG CAP PO SCH ×2 (15:01→17:02)
[2019-03-02] MEDS: COLESEVELAM HCL 625 MG TAB PO SCH (15:01)
[2019-03-02] MEDS: CIPROFLOXACIN 500 MG TAB PO SCH (15:01)
[2019-03-02 15:26] VITALS: BP 145/66
[2019-03-02] MEDS: INSULIN LISPRO 100 UNIT/1 ML 3ML VIAL SQ SCH ×2 (16:30→20:35)
[2019-03-02] MEDS: METFORMIN HCL 500 MG TAB CR PO SCH (17:02)
[2019-03-02 17:21] LABS: CREATINE KINASE 67 IU/L (29-168)
[2019-03-02 19:30] VITALS: BP 181/75
--- NOTE | 2019-03-02 19:30 | NUR ---
patient received awake, alert, lying quietly in bed. no c/o pain noted. ivf continue to infuse without difficulty. respirations even and unlabored. pm assessment complete. patient instructed to call for assistance when needed.
--- NOTE | 2019-03-02 19:48 | Consultation ---
DATE OF CONSULTATION: Pulmonary Consultation REASON FOR THE CONSULT: Possible pneumonia. HISTORY OF PRESENT ILLNESS: Ms. Tolbert is a 73-year-old female. She is my office patient. She has a history of reactive airways and asthma and responded very well to Breo. She has a remote history of right lobectomy for lung cancer in 2000 and since then, she received radiation treatment as well. She also has a history of breast cancer in 2001 and she has some radiation damage to the lung causing some fibrosis, which is chronic. She came in with abdominal pain and she has been constipated and CT showing evidence of severe constipation. She was recently treated for UTI by her primary care physician. REVIEW OF SYSTEMS: GENERAL: Denies any fever or chills. HEAD: Denies any head trauma. ENT: Denies any earaches. CVS: Denies any chest pain. RESPIRATORY: Denies any shortness of breath. The rest of the review of systems are negative except as in HPI. PAST MEDICAL HISTORY: Hypertension, lung cancer in 2000, radiation fibrosis mild, breast cancer in 2001.History of stroke in the past. Chronic cough, which is much better. Obstructive sleep apnea. Mild sleep apnea. Uses CPAP regularly. Irritable bowel syndrome. Acid reflux disease, constipation, hypothyroidism, hypertension. FAMILY AND SOCIAL HISTORY: She never smoked. Denies any alcohol use. She is . Daughter is involved in her care. PHYSICAL EXAMINATION: VITAL SIGNS: Temperature 97.5, pulse of 84, blood pressure 142/77, respiratory rate of 18, O2 saturation 97%. HEENT: Atraumatic, normocephalic. NECK: Supple. CHEST: Clear to auscultation bilaterally. No crackles or wheezing. HEART: S1, S2 audible. No murmurs, gallops, or rubs. ABDOMEN: Soft. No tenderness. No bowel sounds audible. No splenomegaly. EXTREMITIES: No clubbing, cyanosis, or edema. NEUROLOGIC: Awake and alert. LABS: Sodium 135, potassium 3.0, BUN 9, creatinine 0.86, magnesium 1.4, AST slightly elevated at 243. White count of 9.8, hemoglobin 12.1, platelets 184. Chest x-ray, I have reviewed showing deviation of trachea, likely because of the volume loss since she has lobectomy and some interstitial marking and they have said that pneumonia cannot be ruled out. ASSESSMENT/PLAN: Ms. Tolbert is a 73-year-old female my office patient. She has history of reactive airways and asthma. She is on Breo and has been doing very well. She has a history of lung cancer, lobectomy and radiation fibrosis. However, she has never required any home oxygen. Currently, came in with severe constipation causing her to have abdominal pain. CURRENT PROBLEMS: 1. Severe constipation. 2. History of lung cancer status post right lobectomy in 2000. 3. History of breast cancer in 2001. 4. 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 5. History of stroke in the past. 6. Obstructive sleep apnea on CPAP. 7. Irritable bowel syndrome. 8. Hypothyroidism. PLAN: 1. I will do a CT chest without contrast to rule out the reported pneumonia. I doubt that she has pneumonia. I think these are changes from her previous surgery and radiation and volume loss has caused tracheal deviation. 2. CT of the abdomen and pelvis is showing constipation. Case discussed with Dr. Jiemnez who is covering for Dr. Wynn. The patient has been started on laxative and enema. 3. I will continue the patient on IV antibiotics. 4. Abdominal pain, likely due to constipation. Discussed with patient and daughter at the bedside in detail. MD YOVANY Ann/RHIANNA /[id number]
[2019-03-02 20:00] VITALS: BP 181/75
--- NOTE | 2019-03-02 20:07 | History and Physical ---
CHIEF COMPLAINT: Ms. Tolbert is a pleasant 73-year-old woman with multiple medical problems who presents to the emergency room today with a complaint of right-sided "waist" discomfort. HISTORY OF PRESENT ILLNESS: The patient is a rather vague historian. Denies any fever at home and reports she does have a cough from time to time, but also denies dysuria. She reports she has irritable bowel syndrome and that her constipation was very bothersome and now responding to her Correctol tablets. PAST MEDICAL HISTORY: Is complex with previous right lower lobe lobectomy in 2000. She had a left mastectomy in 2006 for breast cancer. The lobectomy was for lung cancer. She has had remote cholecystectomy, , hysterectomy. Past medical history also significant for cardiac catheterization performed in 2006 showing no significant coronary artery disease. She also has type 2 adult onset diabetes, hypertension. CURRENT HOME MEDICATIONS: Include albuterol inhaler, amlodipine 10 mg daily, ciprofloxacin 500 mg every 12 hours, Welchol tablets 625 mg once daily, doxazosin 2 mg daily, gabapentin 600 mg capsule, levothyroxine 50 mcg daily, losartan 100 mg daily, metformin 500 mg b.i.d., metformin succinate 50 mg daily, nortriptyline 20 mg at bedtime, Protonix 40 mg daily, promethazine tablets p.r.n., trazodone 150 mg at bedtime and Breo inhaler. PHYSICAL EXAMINATION: GENERAL: Shows a pleasant, alert white woman who is relatively comfortable. VITAL SIGNS: Blood pressure 140/90. HEAD, EYES, EARS, NOSE, AND THROAT: Unremarkable. NECK: No jugular venous distention. THORAX: There is healed lateral thoracotomy. HEART: Sounds S1, S2 are equal. No significant murmur. LUNGS: Faint crackles on the right base. ABDOMEN: Protuberant. Normal bowel sounds. Nontender. EXTREMITIES: No cyanosis, clubbing, or edema. CT scan of the abdomen shows obstipation. Urinalysis shows casts. Chemistries show sodium 135, potassium 3.0, chloride 99, bicarb 21, glucose 187, BUN 9, creatinine 0.8. CBC shows white count 9.8, hemoglobin 12.1, platelets 184,000. Chest x-ray suggests possible pneumonia. ASSESSMENT: 1. Possible pneumonia. 2. Previous right lower lobe lobectomy for lung cancer. 3. Urinary tract infection. 4. Type 2 adult onset diabetes. 5. Hypokalemia. PLAN: We will provide broad-spectrum antibiotics and inhalers and we will replete her potassium. Dr. Wynn will resume her care on Monday morning. MD AMANDA Ty/AWILDAL /[id number] cc: Ruy Arshad MD
[2019-03-02] MEDS: PANTOPRAZOLE SOD 40 MG TABEC PO SCH (20:44)
[2019-03-02] MEDS: DOXAZOSIN MESYLATE 2 MG TAB PO SCH (20:44)
[2019-03-02] MEDS: NORTRIPTYLINE HCL 10 MG CAP PO SCH (20:44)
[2019-03-02] MEDS: TRAZODONE HCL 50 MG TAB PO SCH (22:00)
[2019-03-03] VITALS (9 sets, daily range): BP systolic 142–195; BP diastolic 69–97
--- NOTE | 2019-03-03 01:15 | NUR ---
cardiac markers drawn and sent to lab at this time.
[2019-03-03] MEDS: CIPROFLOXACIN 500 MG TAB PO SCH ×2 (01:31→14:42)
[2019-03-03 02:12] LABS: CREATINE KINASE 86 IU/L (29-168)
--- NOTE | 2019-03-03 02:30 | NUR ---
patient appears to be resting quietly. no distress noted.
--- NOTE | 2019-03-03 04:50 | NUR ---
bp 189/83 hr 88. ivf completed/d/c'd. will continue to monitor.
[2019-03-03] MEDS: LEVOTHYROXINE SODIUM 50 MCG TAB PO SCH (05:05)
[2019-03-03] MEDS: MEROPENEM 1GM 100 ML IV SCH ×3 (05:05→23:23)
[2019-03-03 06:11] LABS: BASOPHILS % 0.5 % (0.0-1.0); EOSINOPHILS # (AUTO) 0.2 (0.0-0.4); EOSINOPHILS % 3.1 % (0.0-6.0); HEMOGLOBIN 10.1 g/dL (12.0-16.0); LYMPHOCYTES # (AUTO) 2.2 (1.0-3.2); LYMPHOCYTES % 36.5 % (18.0-39.1); MEAN CORPUSCULAR HEMOGLOBIN 30.2 pg (28-32); MEAN CORPUSCULAR HGB CONC 33.7 g/dL (31-35); MEAN CORPUSCULAR VOLUME 89.8 fL (81-99); MONOCYTES # (AUTO) 0.7 (0.2-0.8); MONOCYTES % 11.1 % (4.4-11.3); NEUTROPHILS # (AUTO) 2.9 (2.1-6.9); NEUTROPHILS % 48.5 % (38.7-80.0); PLATELET COUNT 161 x10e3/uL (140-360); RED BLOOD COUNT 3.34 x10e6/uL (3.6-5.1); RED CELL DISTRIBUTION WIDTH 14.2 % (11.7-14.4)
[2019-03-03 06:45] LABS: ALANINE AMINOTRANSFERASE 26 IU/L (0-55); ALBUMIN 2.6 g/dL (3.5-5.0); ALBUMIN/GLOBULIN RATIO 0.8 (0.8-2.0); ALKALINE PHOSPHATASE 62 IU/L (40-150); ANION GAP 12.7 mmol/L (8-16); BLOOD UREA NITROGEN < 5 mg/dL (7-26); CALCIUM 8.3 mg/dL (8.4-10.2); CARBON DIOXIDE 24 mmol/L (22-29); CHLORIDE 106 mmol/L (98-107); CHOL/HDL RATIO 1.9 (3.0-3.6); CHOLESTEROL 128 MD/DL (0-199); CREATININE, SERUM 0.75 mg/dL (0.57-1.11); EST GLOMERULAR FILTRATION RATE > 60 ML/MIN (60-); GLUCOSE 105 mg/dL (74-118); HDL CHOLESTEROL 66 MG/DL (40-60); LDL CHOLESTEROL 50 MG/DL (60-130); POTASSIUM 3.7 mmol/L (3.5-5.1); SODIUM 139 mmol/L (136-145); TRIGLYCERIDES 58 MG/DL (0-149)
[2019-03-03 06:46] LABS: BUN/CREATININE RATIO 7 (6-25)
--- NOTE | 2019-03-03 07:20 | NUR ---
PATIENT IN BED RESTING WITH EYES CLOSED, NO RESPIRATORY DISTRESS OBSERVED. BED IN LOWER POSITION CALL LIGHT AT REACH. FAMILY MEMBER AT BED SIDE.
[2019-03-03] MEDS: INSULIN LISPRO 100 UNIT/1 ML 3ML VIAL SQ SCH ×4 (07:30→20:42)
[2019-03-03] MEDS: AZITHROMYCIN 500MG/NS 250 ML 250 ML IV SCH (09:12)
[2019-03-03] MEDS: PANTOPRAZOLE 40 MG 10ML VIAL IV SCH (09:12)
[2019-03-03] MEDS: LOSARTAN POTASSIUM 100 MG TAB PO SCH (09:13)
[2019-03-03] MEDS: DOCUSATE SODIUM 100 MG CAP PO SCH ×3 (09:13→17:29)
[2019-03-03] MEDS: GABAPENTIN 300 MG CAP PO SCH (09:13)
[2019-03-03] MEDS: METFORMIN HCL 500 MG TAB CR PO SCH ×2 (09:13→17:29)
[2019-03-03] MEDS: ASPIRIN 81 MG ENTERIC COATED PO SCH (09:13)
[2019-03-03] MEDS: AMLODIPINE BESYLATE 5 MG TAB PO SCH (09:13)
[2019-03-03] MEDS: COLESEVELAM HCL 625 MG TAB PO SCH (09:13)
[2019-03-03] MEDS ORDERED: HYDRALAZINE HCL 20 MG/ML VIAL IV PRN (11:45)
[2019-03-03] MEDS: METOPROLOL SUCCINATE 50 MG TAB XL PO SCH (12:00)
[2019-03-03] MEDS ORDERED: CITRATE OF MAGNESIA 300ML BOTTLE PO NR (12:15)
[2019-03-03] MEDS ORDERED: LACTULOSE SYRUP 20 GM/30 ML UDC PO PRN (12:15)
[2019-03-03] MEDS ORDERED: MAGNESIUM HYDROXIDE 30 ML UDC PO PRN (12:15)
--- NOTE | 2019-03-03 12:28 | NUR ---
PATIENT ASSISTED TO THE RESTROOM AND BACK TO BED. SITTING AT BED SIDE EATING LUNCH. CALL LIGHT AT REACH.
--- NOTE | 2019-03-03 15:55 | NUR ---
PATIENT C/O CONSTIPATION, NOTIFIED. NEW ORDER RECEIVED AND IMPLEMENTED. WILL CLOSELY MONITOR.
[2019-03-03] MEDS: NORTRIPTYLINE HCL 10 MG CAP PO SCH (20:42)
[2019-03-03] MEDS: PANTOPRAZOLE SOD 40 MG TABEC PO SCH (20:42)
[2019-03-03] MEDS: TRAZODONE HCL 50 MG TAB PO SCH (20:42)
[2019-03-03] MEDS: DOXAZOSIN MESYLATE 2 MG TAB PO SCH (20:42)
[2019-03-03] MEDS: ALBUTEROL SULFATE HFA 8GM INHALATION AEROSOL INH SCH (23:00)
--- NOTE | 2019-03-03 23:23 | NUR ---
IV SITE RED, IV REMOVED WITH TIP INTACT. IV #22 GAUGE INSERTED TO THE RIGHT HAND, PATIENT TOLERATED PROCEDURE WELL. IV ANTIBIOTIC INFUSING ORDERED. ASSISTED WITH ADLS, CALL LIGHT WITHIN EASY REACH, INSTRUCTED TO CALL FOR ASSISTANCE NEEDED.
[2019-03-04] MEDS: CIPROFLOXACIN 500 MG TAB PO SCH (02:23)
--- NOTE | 2019-03-04 03:20 | NUR ---
ASSISTED PATIENT TO THE RESTROOM TO VOID, SHE'S NOW BACK IN BED WITH CALL LIGHT IN EASY REACH AND SHE DENIES PAIN.
[2019-03-04 04:00] VITALS: BP 143/63
[2019-03-04] MEDS: MEROPENEM 1GM 100 ML IV SCH ×3 (06:35→22:41)
[2019-03-04] MEDS: LEVOTHYROXINE SODIUM 50 MCG TAB PO SCH (06:35)
[2019-03-04] MEDS: INSULIN LISPRO 100 UNIT/1 ML 3ML VIAL SQ SCH ×4 (07:30→21:00)
[2019-03-04] MEDS: ALBUTEROL SULFATE HFA 8GM INHALATION AEROSOL INH SCH ×3 (07:50→22:00)
[2019-03-04 08:00] VITALS: BP 154/67
[2019-03-04 08:06] VITALS: BP 154/67
[2019-03-04] MEDS: PANTOPRAZOLE 40 MG 10ML VIAL IV SCH (08:49)
[2019-03-04] MEDS: ASPIRIN 81 MG ENTERIC COATED PO SCH (08:50)
[2019-03-04] MEDS: AZITHROMYCIN 500MG/NS 250 ML 250 ML IV SCH (08:50)
[2019-03-04] MEDS: DOCUSATE SODIUM 100 MG CAP PO SCH ×3 (08:50→17:02)
[2019-03-04] MEDS: LOSARTAN POTASSIUM 100 MG TAB PO SCH (08:50)
[2019-03-04] MEDS: METFORMIN HCL 500 MG TAB CR PO SCH (08:51)
[2019-03-04] MEDS: AMLODIPINE BESYLATE 5 MG TAB PO SCH (08:51)
[2019-03-04] MEDS: COLESEVELAM HCL 625 MG TAB PO SCH (08:51)
[2019-03-04] MEDS: GABAPENTIN 300 MG CAP PO SCH (08:51)
[2019-03-04] MEDS ORDERED: HYDROCHLOROTHIAZIDE 25 MG TAB PO SCH (09:00)
[2019-03-04] MEDS ORDERED: SODIUM CHLORIDE 0.9% 250ML 250 ML ONE (09:02)
[2019-03-04] MEDS: ACETAMINOPHEN 325 MG TAB PO PRN ×2 (11:09→21:12)
[2019-03-04 11:49] VITALS: BP 133/61
--- NOTE | 2019-03-04 12:26 | Diagnostic Imaging Report ---
EXAMINATION: CT scan of the chest without contrast. TECHNIQUE: Spiral CT images of the chest were performed from the lung apices to the level of the adrenal glands. No intravenous contrast was administered per referring physician request Coronal and sagittal reformatted images were obtained. COMPARISON: Chest radiograph 03/02/2019, CT abdomen and pelvis without contrast 03/02/2019 CLINICAL HISTORY:Pneumonia DISCUSSION: ABSENCE OF INTRAVENOUS CONTRAST DECREASES SENSITIVITY FOR DETECTION OF FOCAL LESIONS AND VASCULAR PATHOLOGY. LINES/TUBES: None. LUNGS AND AIRWAYS: Diffuse symmetric coarse predominantly juxtapleural reticular opacities with scattered foci of air trapping. Bandlike scar or atelectasis in the right lower lobe with a trace right pleural effusion. No airspace consolidation or gross mass lesion. Trachea is deviated to the right at the thoracic inlet. Mainstem bronchi and central lobar and segmental bronchi are patent. PLEURA: Trace right pleural effusion similar to that seen on 03/02/2019. no pneumothorax. HEART AND MEDIASTINUM: Visualized portions of the thyroid gland are unremarkable. Tracheal deviation at the thoracic inlet secondary to tortuosity of the thoracic aorta. No ectasia or aneurysmal dilatation. Pulmonary outflow tract is of normal caliber. Trace pericardial effusion. Bilateral calcified hilar lymph nodes. LYMPH NODES: No axillary, hilar, or mediastinal lymphadenopathy. ABDOMEN: Visualized portions of the liver, spleen, adrenals are unremarkable. Small hiatal hernia. Patulous distal esophagus as previously discussed. BONES AND SOFT TISSUES: Cervical spine fusion hardware. No osseous destructive lesions. Multilevel degenerative disc changes with marked kyphotic curvature of the thoracic spine. IMPRESSION: Trace right pleural effusion with adjacent bandlike lower lobe atelectasis, similar to that seen on CT abdomen and pelvis 03/02/2019. Coarse juxtapleural reticular opacities and interlobular septal thickening likely reflective of age-related fibrotic changes. Scattered central predominant groundglass opacities may reflect superimposed interstitial pulmonary edema. Trace pericardial effusion. Atherosclerotic vascular disease. Small hiatal hernia with patulous distal esophagus. Correlate for symptoms of reflux. Signed by: Dr. Gianni Harmon M.D. on 03/04/2019 12:23 PM
[2019-03-04] MEDS: METOPROLOL SUCCINATE 50 MG TAB XL PO SCH (13:00)
[2019-03-04] MEDS ORDERED: ONDANSETRON HCL 4 MG ORAL DISINTEGRATING TAB PO PRN (13:45)
--- NOTE | 2019-03-04 14:47 | NUR ---
CASE MANAGEMENT INITIAL ASSESSMENT Insurance Analyst to bedside to discuss plan of care with patient/family. CM/SW role and care transitions discussed. Anticipated discharge plan discussed along with duration of care. CM/SW discussed patients right to make decisions in care. CM/SW work hours given. Patient lives: W DTR IN 1 STORY HOME Admit/Transfer: ER Hospital/ER visits since last admit: NONE POA/Emergency contact: AMINA /DTR @ [phone] Current/Previous Home Health: NONE PCP/Follow-up Care: DR. JEREMIAH NG Current/Previous DME: [place] Other Services: NONE Employment Status: RETIRED Areas of Concerns: NONE. PT STILL DRIVES, BUT HER DTR DRIVES HER OFTEN Referral Needs: NONE Education Needs: NONE IMM/OH given and signed (if applicable): SIGNED AT ADMISSION Goal for discharge: RETURN HOME CM/SW left business card at the bedside with contact information. Name and number was also written on the patients whiteboard. Patient verbalized understanding of discussion. CM will follow-up with ongoing discharge and transition of care needs.
[2019-03-04 15:55] VITALS: BP 133/60
[2019-03-04 20:00] VITALS: BP 132/68
[2019-03-04] MEDS: TRAZODONE HCL 50 MG TAB PO SCH (21:08)
[2019-03-04] MEDS: PANTOPRAZOLE SOD 40 MG TABEC PO SCH (21:08)
[2019-03-04] MEDS: NORTRIPTYLINE HCL 10 MG CAP PO SCH (21:08)
[2019-03-04] MEDS: DOXAZOSIN MESYLATE 2 MG TAB PO SCH (21:08)
--- NOTE | 2019-03-04 21:15 | NUR ---
PATIENT C/O PAIN TO THE BACK WITH PAIN SCORE #6, MEDICATED WITH TYLENOL ORDERED. ASSISTED WITH ADLS, CALL LIGHT WITHIN EASY REACH, SHE'S INSTRUCTED TO CALL FOR ASSISTANCE NEEDED.
[2019-03-05] VITALS (7 sets, daily range): BP systolic 137–161; BP diastolic 65–81
--- NOTE | 2019-03-05 02:40 | NUR ---
ROUNDS MADE, PATIENT IS ASLEEP, SHE'S EASY TO AROUSE. NO ACUTE DISTRESS OBSERVED, SHE DENIES PAIN. CALL LIGHT WITHIN EASY REACH, WILL CONTINUE TO MONITOR.
[2019-03-05] MEDS: MEROPENEM 1GM 100 ML IV SCH (06:29)
[2019-03-05] MEDS: LEVOTHYROXINE SODIUM 50 MCG TAB PO SCH (06:29)
[2019-03-05] MEDS: ALBUTEROL SULFATE HFA 8GM INHALATION AEROSOL INH SCH ×3 (07:00→22:00)
[2019-03-05] MEDS: INSULIN LISPRO 100 UNIT/1 ML 3ML VIAL SQ SCH ×4 (07:30→21:00)
[2019-03-05] MEDS: AZITHROMYCIN 500MG/NS 250 ML 250 ML IV SCH (08:56)
[2019-03-05] MEDS: ASPIRIN 81 MG ENTERIC COATED PO SCH (08:56)
[2019-03-05] MEDS: LOSARTAN POTASSIUM 100 MG TAB PO SCH (08:57)
[2019-03-05] MEDS: GABAPENTIN 300 MG CAP PO SCH (08:57)
[2019-03-05] MEDS: AMLODIPINE BESYLATE 5 MG TAB PO SCH (08:58)
[2019-03-05] MEDS: DOCUSATE SODIUM 100 MG CAP PO SCH ×2 (09:00→17:00)
[2019-03-05] MEDS: METOPROLOL SUCCINATE 50 MG TAB XL PO SCH (13:53)
--- NOTE | 2019-03-05 20:00 | NUR ---
PATIENT CONDITION STABLE WITHOUT RESPIRATORY DISTRESS, SHE C/O PAIN TO THE RIGHT SIDE OF THE ABDOMEN ON PALPATION ONLY. DR KWOK SAW THE PATIENT, NO NEW ORDERS RECEIVED.
[2019-03-05] MEDS: DOXAZOSIN MESYLATE 2 MG TAB PO SCH (21:20)
[2019-03-05] MEDS: TRAZODONE HCL 50 MG TAB PO SCH (21:20)
[2019-03-05] MEDS: PANTOPRAZOLE SOD 40 MG TABEC PO SCH (21:20)
[2019-03-05] MEDS: NORTRIPTYLINE HCL 10 MG CAP PO SCH (21:20)
[2019-03-06] VITALS: BP 145/62
--- NOTE | 2019-03-06 01:38 | NUR ---
PATIENT IS ASLEEP, SHE'S EASY TO AROUSE. SHE DENIES ABDOMINAL PAIN, CALL LIGHT WITHIN EASY REACH, INSTRUCTED TO CALL FOR ASSISTANCE NEEDED.
--- NOTE | 2019-03-06 02:03 | Consultation ---
DATE OF CONSULTATION: 03/05/2019 HISTORY OF PRESENT ILLNESS: This is 73-year-old history of IBS predominantly with diarrhea, initially was admitted to the hospital because of problem with diarrhea with abdominal pain and found with possible pneumonia with some pleural effusion. She also complains of constipation. She had a CAT scan of abdomen and pelvis on admission, which showed obstipation. She apparently had a colonoscopy, which was supposedly "normal" about a year or so ago. PAST MEDICAL HISTORY: Her medical problems are significant for a history of lung cancer status post right lobectomy, also history of breast cancer status post left mastectomy, previous history of C-sections, hysterectomy, also history of diabetes and hypertension. MEDICATIONS: On admission including albuterol, amlodipine, Cipro, Welchol, doxazosin, gabapentin, levothyroxine, losartan, metformin, nortriptyline, Protonix, trazodone, and Breo. ALLERGIES: NONE. SOCIAL HISTORY: No alcohol use. FAMILY HISTORY: Noncontributory. REVIEW OF SYSTEMS: At this point, denies any chest pain. Denies any shortness of breath. Denies any dysphagia or odynophagia. Denies any dysuria, hematuria, or any kind of syncopal episode. PHYSICAL EXAMINATION: GENERAL: Awake, alert, appears to be stable, not in acute distress at this point. VITAL SIGNS: Afebrile currently. HEENT: NECK: Supple. HEART: Regular. ABDOMEN: Soft. There is mild tenderness in right lower quadrant area. No rebound or mass. EXTREMITIES: No clubbing. LABORATORY VALUES: As of several days ago, hemoglobin 10.1, and the CMP was okay on admission. CAT scan showed evidence of distended cecum with large amount of retained feces suggest constipation and fecal impaction. IMPRESSION: 1. Abdominal pain with some constipation. This appears to be resolved. 2. Status post pneumonia with pleural effusion. 3. History of irritable bowel syndrome. 4. History of lung and breast cancer. RECOMMENDATIONS: Continue current care at this point. The patient is ready to go home. The patient will need to have probably the colonoscopy as an outpatient for further evaluation. Follow clinically. MD MILTON Rhodes/MODL /[id number] cc: Angelito Wynn MD
[2019-03-06 04:00] VITALS: BP 184/81
--- NOTE | 2019-03-06 05:13 | NUR ---
ROUNDS MADE, PATIENT OBSERVED ASLEEP WITHOUT RESPIRATORY DISTRESS. CALL LIGHT WITHIN EASY REACH.
[2019-03-06] MEDS: LEVOTHYROXINE SODIUM 50 MCG TAB PO SCH (06:05)
[2019-03-06 06:20] LABS: BASOPHILS % 0.6 % (0.0-1.0); EOSINOPHILS # (AUTO) 0.2 (0.0-0.4); HEMATOCRIT 35.3 % (34.2-44.1); HEMOGLOBIN 11.7 g/dL (12.0-16.0); LYMPHOCYTES # (AUTO) 2.4 (1.0-3.2); LYMPHOCYTES % 37.6 % (18.0-39.1); MEAN CORPUSCULAR HEMOGLOBIN 29.2 pg (28-32); MEAN CORPUSCULAR HGB CONC 33.1 g/dL (31-35); MONOCYTES # (AUTO) 0.7 (0.2-0.8); MONOCYTES % 10.6 % (4.4-11.3); NEUTROPHILS % 47.9 % (38.7-80.0); PLATELET COUNT 238 x10e3/uL (140-360); RED BLOOD COUNT 4.01 x10e6/uL (3.6-5.1); RED CELL DISTRIBUTION WIDTH 13.9 % (11.7-14.4)
[2019-03-06 07:06] LABS: ANION GAP 14.6 mmol/L (8-16); BLOOD UREA NITROGEN 9 mg/dL (7-26); BUN/CREATININE RATIO 12 (6-25); CALCIUM 9.7 mg/dL (8.4-10.2); CARBON DIOXIDE 26 mmol/L (22-29); CHLORIDE 99 mmol/L (98-107); CREATININE, SERUM 0.77 mg/dL (0.57-1.11); EST GLOMERULAR FILTRATION RATE > 60 ML/MIN (60-); GLUCOSE 125 mg/dL (74-118); POTASSIUM 3.6 mmol/L (3.5-5.1); SODIUM 136 mmol/L (136-145)
[2019-03-06] MEDS: ALBUTEROL SULFATE HFA 8GM INHALATION AEROSOL INH SCH (07:08)
[2019-03-06] MEDS: INSULIN LISPRO 100 UNIT/1 ML 3ML VIAL SQ SCH (07:30)
[2019-03-06 07:31] VITALS: BP 136/67
[2019-03-06] MEDS: DOCUSATE SODIUM 100 MG CAP PO SCH (09:00)
[2019-03-06] MEDS ORDERED: FUROSEMIDE 20 MG TAB PO SCH (09:00)
[2019-03-06] MEDS: ASPIRIN 81 MG ENTERIC COATED PO SCH (09:07)
[2019-03-06] MEDS: GABAPENTIN 300 MG CAP PO SCH (09:08)
[2019-03-06] MEDS: ACETAMINOPHEN 325 MG TAB PO PRN (09:08)
[2019-03-06] MEDS: AMLODIPINE BESYLATE 5 MG TAB PO SCH (09:08)
[2019-03-06] MEDS: LOSARTAN POTASSIUM 100 MG TAB PO SCH (09:08)
[2019-03-06] MEDS: AZITHROMYCIN 500MG/NS 250 ML 250 ML IV SCH (09:09)
[2019-03-06] MEDS ORDERED: DOXYCYCLINE HY100 MG PO (09:50)
[2019-03-06 11:31] VITALS: BP 137/66
--- NOTE | 2019-03-06 13:55 | NUR ---
PATIENT DISCHARGE HOME- PATIENT OFF THE UNIT AT 1305 PER WHEELCHAIR ACCOMPANIED BY PCT TO THE FRONT LOBBY. PATIENT IN STABLE CONDITION WITH NO S/S OF RESPIRATORY DISTRESS. NO PAIN VOICED. IV REMOVED AT 1305 WITH TIP INTACT. DISCHARGE TEACHING, INSTRUCTIONS, AND MEDICATIONS GIVEN TO THE PATIENT. ALL PERSONAL ITEMS WERE TAKEN WITH THE PATIENT AND HER FRIEND.
--- NOTE | 2019-03-06 14:57 | NUR ---
IMM LETTER EXPLAINED AND PT VERBALIZED UNDERSTANDING. IMM LETTER WAS SIGNED. COPY TO PT AND COPY TO CHART.
== END 2019-03-06 13:58 | disposition home or self-care (01) | DRG 194 ==
LOC: ER 07:46 → ERHOLD 12:02 → MED/SURG3 12:54
PROVIDERS: ADMIT Internal Medicine; ATTEND Internal Medicine
DX: J18.9 Pneumonia, unspecified organism (principal); N12 Tubulo-interstitial nephritis, not specified as acute or chronic; E87.6 Hypokalemia; G47.33 Obstructive sleep apnea (adult) (pediatric); Z86.73 Personal history of transient ischemic attack (TIA), and cerebral infarction without residual deficits; K58.9 Irritable bowel syndrome, unspecified
CPT/HCPCS: 36415; 71045; 71046; 71250; 74177; 80048; 80053; 80061; 81001; 82550; 82553; 82948; 83690; 83735; 84443; 84484; 85025; 85610; 85730; 87086; 93005; 94664; 96367; 99284; J0456; J1885; J2405; J3480; J7030; J7050; Q9967

== ENCOUNTER 2019-03-21 17:16 | Emergency (ER) | payer MEDICARE, OTHER ==
[~2019-03-21] VITALS: Ht 172.7 cm; Wt 99.3 kg
[~2019-03-21 17:16] MED LIST changes: +ALBUTEROL2.5 MG/0.5; +BREO; +CIPROFLOXACIN500 MG PO; +DOXYCYCLINE HY100 MG PO; +NORTRIPTYLINE H10 MG PO; +PROAIR HFA INH8.5 GM; +PROMETHAZINE HC25 M1 PO
[2019-03-21] MEDS ORDERED: SIMETHICONE 40 MG/0.6 ML BTL PO ONE (17:45)
[2019-03-21 18:10] LABS: CLARITY,URINE SL CLOUDY (CLEAR); COLOR,URINE STRAW (YELLOW); LEUKOCYTE ESTERASE ,URINE NEGATIVE (NEGATIVE); NITRITE,URINE NEGATIVE (NEGATIVE)
[2019-03-21 18:11] LABS: BILIRUBIN,URINE NEGATIVE (NEGATIVE); KETONES,URINE NEGATIVE (NEGATIVE); PROTEIN,URINE DIPSTICK TRACE (NEGATIVE); URINE UROBILINOGEN 0.2 mg/dL (0.2 - 1)
[2019-03-21 18:29] LABS: EPITHELIAL CELLS,URINE RARE /LPF
[2019-03-21 19:04] LABS: BASOPHILS # (AUTO) 0.1 (0.0-0.1); BASOPHILS % 0.6 % (0.0-1.0); EOSINOPHILS # (AUTO) 0.6 (0.0-0.4); EOSINOPHILS % 7.5 % (0.0-6.0); HEMATOCRIT 35.4 % (34.2-44.1); HEMOGLOBIN 12.1 g/dL (12.0-16.0); LYMPHOCYTES # (AUTO) 1.3 (1.0-3.2); LYMPHOCYTES % 15.3 % (18.0-39.1); MEAN CORPUSCULAR HEMOGLOBIN 30.3 pg (28-32); MEAN CORPUSCULAR HGB CONC 34.2 g/dL (31-35); MEAN CORPUSCULAR VOLUME 88.5 fL (81-99); MONOCYTES # (AUTO) 0.8 (0.2-0.8); MONOCYTES % 9.4 % (4.4-11.3); NEUTROPHILS # (AUTO) 5.7 (2.1-6.9); PLATELET COUNT 187 x10e3/uL (140-360); RED CELL DISTRIBUTION WIDTH 13.9 % (11.7-14.4)
[2019-03-21 19:24] LABS: ALANINE AMINOTRANSFERASE 31 IU/L (0-55); ALBUMIN 3.7 g/dL (3.5-5.0); ALBUMIN/GLOBULIN RATIO 0.9 (0.8-2.0); ALKALINE PHOSPHATASE 77 IU/L (40-150); ANION GAP 15.4 mmol/L (8-16); BLOOD UREA NITROGEN 8 mg/dL (7-26); BUN/CREATININE RATIO 10 (6-25); CALCIUM 10.2 mg/dL (8.4-10.2); CARBON DIOXIDE 25 mmol/L (22-29); CHLORIDE 99 mmol/L (98-107); CREATININE, SERUM 0.81 mg/dL (0.57-1.11); EST GLOMERULAR FILTRATION RATE > 60 ML/MIN (60-); GLUCOSE 103 mg/dL (74-118); POTASSIUM 3.4 mmol/L (3.5-5.1); SODIUM 136 mmol/L (136-145)
--- NOTE | 2019-03-21 20:02 | Diagnostic Imaging Report ---
EXAM: ABDOMEN-1VIEW (KUB), DATE: 03/21/2019 5:36 PM INDICATION: Severe abdominal pain. COMPARISON: None FINDINGS: LINES/TUBES: None BOWEL PATTERN: No evidence for obstruction. SOFT TISSUES: No abnormal calcifications. No mass effect. LUNG BASES: Clear. BONES: No acute findings. Degenerative changes of the lower lumbar spine. IMPRESSION: Moderate volume of stool within the colon and rectum. No small bowel dilatation to suggest obstruction. Signed by: Dr. Maxwell Watson M.D. on 03/21/2019 7:59 PM
== END 2019-03-21 20:56 | disposition home or self-care (01) ==
LOC: ER 17:16
DX: R10.11 Right upper quadrant pain (principal); R10.84 Generalized abdominal pain
CPT/HCPCS: 36415; 74018; 80053; 81001; 83690; 85025; 99284